=== PATIENT | female | born 1950 | race Two or more races ===

== ENCOUNTER 2018-09-26 23:51 | Inpatient (IN) | payer MEDICARE, BC ==
[~2018-09-26] VITALS: Ht 177.8 cm; Wt 126.6 kg
[2018-09-27] VITALS (8 sets, daily range): BP systolic 128–164; BP diastolic 60–92
[2018-09-27 01:20] LABS: BASOPHILS % (AUTO) 0.9 % (0.0-2.0); EOSINOPHILS % (AUTO) 1.4 % (0.0-3.0); HEMATOCRIT 30.3 % (37.0-47.0); HEMOGLOBIN 9.4 G/DL (12.0-16.0); LYMPHOCYTES % (AUTO) 11.7 % (20.0-45.0); MEAN CORPUSCULAR VOLUME 80 FL (80-99); NEUTROPHILS % (AUTO) 80.1 % (45.0-75.0); PLATELET COUNT 323 K/UL (150-450); RED BLOOD COUNT 3.79 M/UL (4.20-5.40); RED CELL DISTRIBUTION WIDTH 17.9 % (11.6-14.8); WHITE BLOOD COUNT 11.7 K/UL (4.8-10.8)
[2018-09-27 01:32] LABS: ANION GAP 10 mmol/L (5-15); BLOOD UREA NITROGEN 6 mg/dL (7-18); CALCIUM 8.4 MG/DL (8.5-10.1); CARBON DIOXIDE 26 MMOL/L (21-32); CHLORIDE 109 MMOL/L (98-107); CREATININE 1.1 MG/DL (0.55-1.30); POTASSIUM 3.7 MMOL/L (3.5-5.1); SODIUM 145 MMOL/L (136-145)
[2018-09-27 01:37] LABS: ALANINE AMINOTRANSFERASE 22 U/L (12-78); ALBUMIN/GLOBULIN RATIO 0.8 (1.0-2.7); ALKALINE PHOSPHATASE < 10 U/L (46-116); ASPARTATE AMINO TRANSFERASE 15 U/L (15-37); BILIRUBIN,TOTAL 0.4 MG/DL (0.2-1.0)
[2018-09-27] MEDS ORDERED: Morphine Sulfate 4mg/ml Inj (IV/IM USE ONLY) IVP ONE ×2 (02:15)
[2018-09-27 02:20] LABS: APPEARANCE,URINE CLEAR; BILIRUBIN, URINE NEGATIVE (NEGATIVE); COLOR,URINE PALE YELLOW; GLUCOSE, URINE (UA) NEGATIVE (NEGATIVE); KETONES,URINE NEGATIVE (NEGATIVE); LEUKOCYTE ESTERASE ,URINE NEGATIVE (NEGATIVE); NITRITE,URINE NEGATIVE (NEGATIVE); PH,URINE 7 (4.5-8.0); PROTEIN,URINE NEGATIVE (NEGATIVE); UROBILINOGEN,URINE NORMAL MG/DL (0.0-1.0)
--- NOTE | 2018-09-27 03:21 | Emergency Room Report ---
History of Present Illness General Chief Complaint: Pain Source: Patient Present Illness HPI Patient fell and twisted her L leg. She has severe pain above the knee which radiates down below the knee. She has had knee replacement surgery in the past. EMS splinted the leg. No head or back trauma. No UE pain. She denies numbness, but states the MS causes variable sensation in LE. Patient with MS and leg weakness. She has had falls in the past. No fevers, chills, URI sy, cough, chest pain, dyspnea, rashes, headache, NVD, dysuria. Allergies: Coded Allergies: No Known Allergies (Unverified , 09/26/18) Patient History Past Medical History: see triage record Past Surgical History: other - knee replacements Social History: Denies: smoking Social History Narrative at home Last Menstrual Period: n/a Now: No Reviewed Nursing Documentation: PMH: Agreed; PSxH: Agreed Nursing Documentation-PMH Hx Cardiac Problems: Yes - PT has AFIB Hx Hypertension: Yes - PT stated she has high blood pressure Hx Pacemaker: No Hx Asthma: No Hx COPD: No Hx Diabetes: No Hx Cancer: No Hx Gastrointestinal Problems: No Hx Dialysis: No History Of Psychiatric Problem: No Hx Neurological Problems: Yes - PT stated she has Multiple Sclerosis Hx Cerebrovascular Accident: No Hx Seizures: No Review of Systems All Other Systems: negative except mentioned in HPI Physical Exam Vital Signs Date Time Temp Pulse Resp B/P (MAP) Pulse Ox O2 Delivery O2 Flow Rate FiO2 09/26/18 23:50 98.2 88 12 127/72 95 Room Air Sp02 EP Interpretation: reviewed, normal General Appearance: no apparent distress, GCS 15, Chronically Ill Head: normocephalic Eyes: bilateral eye normal inspection, bilateral eye PERRL ENT: moist mucus membranes Neck: supple Respiratory: lungs clear, normal breath sounds Cardiovascular #1: regular rate, rhythm Cardiovascular #2: 2+ radial (R) Gastrointestinal: normal inspection, normal bowel sounds, non tender, no mass, non-distended, overweight Genitourinary: no CVA tenderness Musculoskeletal: back normal, no calf tenderness, other - tenderness L knee area, no deformity Neurologic: alert, oriented x3, sensory intact, motor weakness - LE Psychiatric: mood/affect normal Skin: normal inspection, warm/dry Medical Decision Making Diagnostic Impression: Primary Impression: Fracture, femur, distal Qualified Codes: S72.402A - Unspecified fracture of lower end of left femur, initial encounter for closed fracture Additional Impression: Multiple sclerosis ER Course Patient with knee pain post fall. DDX: fx, contusion, strain, sprain. Based on pain and exam, fracture highly suspected. Xrays, labs indicted. Analgesia ordered. EKG with a fib. L femur with fracture. L tib fib no fx. Labs with slight leukocytosis. Repeat analgesia. Splint applied by techs. Position good and neurovasc checked by me and "normal " (weakness as before). Patient admitted Dr. Parry. Dr. Rivera contacted and will consult. Improved pain control. Laboratory Tests Test 09/27/18 01:03 09/27/18 01:54 White Blood Count 11.7 K/UL (4.8-10.8) H Red Blood Count 3.79 M/UL (4.20-5.40) L Hemoglobin 9.4 G/DL (12.0-16.0) L Hematocrit 30.3 % (37.0-47.0) L Mean Corpuscular Volume 80 FL (80-99) Mean Corpuscular Hemoglobin 24.9 PG (27.0-31.0) L Mean Corpuscular Hemoglobin Concent 31.1 G/DL (32.0-36.0) L Red Cell Distribution Width 17.9 % (11.6-14.8) H Platelet Count 323 K/UL (150-450) Mean Platelet Volume 7.9 FL (6.5-10.1) Neutrophils (%) (Auto) 80.1 % (45.0-75.0) H Lymphocytes (%) (Auto) 11.7 % (20.0-45.0) L Monocytes (%) (Auto) 6.0 % (1.0-10.0) Eosinophils (%) (Auto) 1.4 % (0.0-3.0) Basophils (%) (Auto) 0.9 % (0.0-2.0) Prothrombin Time 10.9 SEC (9.30-11.50) Prothrombin Time INR 1.0 (0.9-1.1) PTT 29 SEC (23-33) Sodium Level 145 MMOL/L (136-145) Potassium Level 3.7 MMOL/L (3.5-5.1) Chloride Level 109 MMOL/L (98-107) H Carbon Dioxide Level 26 MMOL/L (21-32) Anion Gap 10 mmol/L (5-15) Blood Urea Nitrogen 6 mg/dL (7-18) L Creatinine 1.1 MG/DL (0.55-1.30) Estimate Glomerular Filtration Rate 49.9 mL/min (>60) Glucose Level 95 MG/DL (74-106) Calcium Level 8.4 MG/DL (8.5-10.1) L Total Bilirubin 0.4 MG/DL (0.2-1.0) Aspartate Amino Transferase (AST) 15 U/L (15-37) Alanine Aminotransferase (ALT) 22 U/L (12-78) Alkaline Phosphatase < 10 U/L (46-116) L Total Protein 6.6 G/DL (6.4-8.2) Albumin 3.0 G/DL (3.4-5.0) L Globulin 3.6 g/dL Albumin/Globulin Ratio 0.8 (1.0-2.7) L Urine Color Pale yellow Urine Appearance Clear Urine pH 7 (4.5-8.0) Urine Specific [place] 1.005 (1.005-1.035) Urine Protein Negative (NEGATIVE) Urine Glucose (UA) Negative (NEGATIVE) Urine Ketones Negative (NEGATIVE) Urine Blood Negative (NEGATIVE) Urine Nitrite Negative (NEGATIVE) Urine Bilirubin Negative (NEGATIVE) Urine Urobilinogen Normal MG/DL (0.0-1.0) Urine Leukocyte Esterase Negative (NEGATIVE) Urine RBC 0-2 /HPF (0 - 2) Urine WBC 0-2 /HPF (0 - 2) Urine Squamous Epithelial Cells Occasional /LPF Urine Bacteria Occasional /HPF (NONE) EKG Diagnostic Results Rhythm: other - a fib ST Segments: no acute changes Rhythm Strip Diag. Results EP Interpretation: yes Rhythm: no PVC's, no ectopy, other - a fib Other X-Ray Diagnostic Results Other X-Ray Diagnostic Results #1: X-Ray ordered: femur # of Views/Limited Vs Complete: 4 View Indication: Pain Interpretation: no dislocation, no soft tissue swelling, other - fx Impression: Other Electronically Signed by: Electronically signed by Sung Barnes MD Other X-Ray Diagnostic Results #2: X-Ray ordered: tib fib # of Views/Limited Vs Complete: 4 View Indication: Pain Interpretation: no dislocation, no soft tissue swelling, no fractures, other - knee replacement Impression: Other Electronically Signed by: Electronically signed by Sung Barnes MD Last Vital Signs Date Time Temp Pulse Resp B/P (MAP) Pulse Ox O2 Delivery O2 Flow Rate FiO2 09/27/18 04:39 98.0 09/27/18 03:56 Room Air 09/27/18 03:30 104 18 141/86 (104) 94 Status: improved Disposition: ADMITTED INPATIENT Condition: Serious Referrals: NOT CHOSEN IPA/,REFERRING (PCP) Sung Barnes MD Sep 27, 2018 03:20
[2018-09-27] MEDS: Sodium Chloride 500ML 550 ML IV SCH ×2 (03:40)
--- NOTE | 2018-09-27 03:47 | Diagnostic Imaging Report ---
EXAM: XR Left Femur, 2 Views CLINICAL HISTORY: TRAUMA TECHNIQUE: Frontal and lateral views of the left femur. COMPARISON: No relevant prior studies available. FINDINGS: Bones/joints: Transverse distal femoral diaphysis fracture with 4 cm of overlap displacement. Partially seen left total knee arthroplasty which is distal to the fracture site and appears uninvolved. Additional dedicated knee and leg radiograph studies have also been obtained. Mild left hip degenerative findings. No dislocation. Soft tissues: Soft tissue increased opacity in the mid femoral diaphysis may represent intramuscular and soft tissue hematoma. IMPRESSION: 1. Transverse distal femoral diaphysis fracture with 4 cm of overlap displacement. 2. Soft tissue increased opacity in the mid femoral diaphysis may represent intramuscular and soft tissue hematoma. 3. Partially seen left total knee arthroplasty which is distal to the fracture site and appears uninvolved. 4. Additional dedicated knee and leg radiograph studies have also been obtained.
--- NOTE | 2018-09-27 03:48 | Diagnostic Imaging Report ---
EXAM: XR Left Tibia and Fibula, 2 Views CLINICAL HISTORY: TRAUMA TECHNIQUE: Frontal and lateral views of the left tibia and fibula. COMPARISON: No relevant prior studies available. FINDINGS: Bones/joints: Partially seen total knee arthroplasty without visualized complication. No acute osseous abnormality. Achilles calcaneal enthesophyte. Mild degenerative hindfoot findings. No dislocation. Soft tissues: Unremarkable soft tissues. No radiopaque foreign body. IMPRESSION: 1. Partially seen total knee arthroplasty without visualized complication. 2. No acute osseous abnormality.
--- NOTE | 2018-09-27 03:51 | Diagnostic Imaging Report ---
EXAM: XR Left Knee, 3 views CLINICAL HISTORY: TRAUMA TECHNIQUE: Three views of the left knee. COMPARISON: No relevant prior studies available. FINDINGS: Bones/joints: Transverse distal femoral diaphysis fracture with 4 cm displaced overlap present, distal fracture fragment lies posterior to proximal fracture fragment. Thin linear vertically oriented fracture line without displacement extends distally and may involve some component of the left total knee arthroplasty which is otherwise not displaced and otherwise demonstrates no complication. No dislocation. Soft tissues: Stranding soft tissue swelling. IMPRESSION: 1. Transverse distal femoral diaphysis fracture with 4 cm displaced overlap present, distal fracture fragment lies posterior to proximal fracture fragment. 2. Thin linear vertically oriented fracture line without displacement extends distally and may involve some component of the left total knee arthroplasty which is otherwise not displaced and otherwise demonstrates no complication. 3. Stranding soft tissue swelling.
[2018-09-27] MEDS: Morphine Sulfate 2mg/ml Inj IVP PRN ×3 (04:09→21:30)
[2018-09-27] MEDS ORDERED: UNOBMED (07:25)
[2018-09-27] MEDS ORDERED: Morphine Sulfate 2mg/ml Inj IVP SCH ×2 (08:15→15:55)
[2018-09-27] MEDS: Docusate 100mg cap ORAL SCH ×3 (08:40→18:12)
[2018-09-27] MEDS: Carvedilol 25mg Tab ORAL SCH ×2 (08:40→21:26)
[2018-09-27] MEDS: Liothyronine 5mcg tab ORAL SCH (08:42)
[2018-09-27] MEDS: Enoxaparin 40mg Inj SUBQ SCH (08:46)
--- NOTE | 2018-09-27 13:30 | History and Physical Report ---
DATE OF ADMISSION: 09/27/2018 REASON FOR ADMISSION: Left leg pain. HISTORY OF PRESENT ILLNESS: The patient is a 67-year-old female with known multiple sclerosis and multiple falls and as such, the patient had only been on aspirin for her atrial fibrillation when she presented with left lower extremity pain. X-rays were conducted and showed a transverse distal femoral diaphysis fracture with a 4 cm of overlap displacement. As such, the patient was admitted for further evaluation and management per Orthopedics. PAST MEDICAL HISTORY: 1. Multiple sclerosis. 2. Hypertension. 3. Atrial fibrillation. FAMILY HISTORY: Positive for hypertension. PAST SURGICAL HISTORY: Noncontributory. LABORATORY DATA: Laboratories dated September 27, 2018, sodium 145, potassium 3.7, creatinine 1.1. White cell count 11.7, hemoglobin 9.4, and platelet count 323. PHYSICAL EXAMINATION: VITAL SIGNS: Blood pressure 141/86, respiratory rate 18, pulse 104, temperature 97.9, and 94% oxygen saturation on room air. GENERAL: The patient awake, alert, not otherwise in distress. HEENT: Extraocular muscles intact. No lymphadenopathy noted. CARDIOVASCULAR: S1, S2. Irregularly irregular. PULMONARY: Clear to auscultation bilaterally. No rales, rhonchi or wheezes. ABDOMEN: Nondistended and nontender. EXTREMITIES: No edema noted. ASSESSMENT AND PLAN: 1. Left leg pain secondary to transverse distal femoral diaphysis fracture with 4 cm displaced overlap. As such, Orthopedics Dr. Rivera has been consulted. We will defer management. 2. DVT prophylaxis with Lovenox. 3. Atrial fibrillation, chronic. The patient will be on aspirin due to recurrent multiple falls. 4. Multiple sclerosis. At this time, we are trying to ascertain her appropriate medicine reconciliation list. 5. Hypertension. We will adjust medications as deemed appropriate. 6. At this time, we are trying to ascertain her medications and we will continue appropriate medications as deemed necessary. Patel Gray MD DR: BARRINGTON/MARY JOB#: [id number] CC:
--- NOTE | 2018-09-27 14:57 | Cardiology Report ---
APPROVED REPORT EKG Measurement Heart [id number] Atrial fibrillation Septal infarct, age undetermined Abnormal ECG
[2018-09-28] VITALS: BP 115/61
[2018-09-28] MEDS: Morphine Sulfate 2mg/ml Inj IVP PRN ×5 (03:16→22:17)
[2018-09-28 04:00] VITALS: BP 147/77
[2018-09-28] MEDS ORDERED: Morphine Sulfate 2mg/ml Inj IVP ONE (06:00)
[2018-09-28 08:00] VITALS: BP 147/94
[2018-09-28 08:16] LABS: BASOPHILS % (AUTO) 0.6 % (0.0-2.0); EOSINOPHILS % (AUTO) 1.9 % (0.0-3.0); LYMPHOCYTES % (AUTO) 12.5 % (20.0-45.0); MEAN CORPUSCULAR VOLUME 81 FL (80-99); MONOCYTES % (AUTO) 12.9 % (1.0-10.0); NEUTROPHILS % (AUTO) 72.1 % (45.0-75.0); PLATELET COUNT 234 K/UL (150-450); RED BLOOD COUNT 3.21 M/UL (4.20-5.40); RED CELL DISTRIBUTION WIDTH 18.1 % (11.6-14.8); WHITE BLOOD COUNT 11.7 K/UL (4.8-10.8)
[2018-09-28 08:43] LABS: ANION GAP 7 mmol/L (5-15); BLOOD UREA NITROGEN 12 mg/dL (7-18); CALCIUM 8.3 MG/DL (8.5-10.1); CARBON DIOXIDE 25 MMOL/L (21-32); CHLORIDE 106 MMOL/L (98-107); CREATININE 1.1 MG/DL (0.55-1.30); POTASSIUM 3.9 MMOL/L (3.5-5.1); SODIUM 138 MMOL/L (136-145)
--- NOTE | 2018-09-28 08:51 | Nephrology Progress Note ---
Assessment/Plan Assessment/Plan A/P 1) transverse distal femoral diaphysis fracture with 4 cm displaced overlap - Surgery planned for today - adjust pain medications 2) HTN- stable 3) Hypothyroid- cytomel 4) DVT prophylaxsis with lovenox Subjective Date patient seen: Sep 28, 2018 Time patient seen: 08:45 ROS Limited/Unobtainable: No Allergies: Coded Allergies: No Known Allergies (Unverified , 09/26/18) All Systems: reviewed and negative except above Subjective Patient still with left leg pain Objective Last 24 Hour Vital Signs Date Time Temp Pulse Resp B/P (MAP) Pulse Ox O2 Delivery O2 Flow Rate FiO2 09/28/18 06:44 99.8 09/28/18 06:11 99.8 09/28/18 04:00 100.0 82 18 147/77 (100) 82 09/28/18 00:00 100.0 19 115/61 (79) 88 09/27/18 21:26 92 150/91 09/27/18 21:00 Room Air 09/27/18 20:00 99.8 105 20 164/86 (112) 94 09/27/18 19:00 100.3 09/27/18 16:00 99.9 88 20 164/89 (114) 100 09/27/18 12:00 99.1 91 18 141/66 (91) 98 09/27/18 09:00 Room Air Intake and Output 09/27/18 09/28/18 18:59 06:59 Intake Total 1260 ml Output Total 650 ml 450 ml Balance -650 ml 810 ml Intake Oral 360 ml IV Total 900 ml Output Urine Total 650 ml 450 ml Laboratory Tests 09/28/18 06:32: White Blood Count 11.7H, Red Blood Count 3.21L, Hemoglobin 8.0L, Hematocrit 26.0L, Mean Corpuscular Volume 81, Mean Corpuscular Hemoglobin 25.0L, Mean Corpuscular Hemoglobin Concent 30.9L, Red Cell Distribution Width 18.1H, Platelet Count 234, Mean Platelet Volume 8.4, Neutrophils (%) (Auto) 72.1, Lymphocytes (%) (Auto) 12.5L, Monocytes (%) (Auto) 12.9H, Eosinophils (%) (Auto ) 1.9, Basophils (%) (Auto) 0.6 09/28/18 07:55: Sodium Level [Pending], Potassium Level [Pending], Chloride Level [Pending], Carbon Dioxide Level [Pending], Blood Urea Nitrogen [Pending], Creatinine [ Pending], Estimat Glomerular Filtration Rate [Pending], Glucose Level [Pending] , Calcium Level [Pending] Height (Feet): 5 Height (Inches): 10.00 Weight (Pounds): 266 General Appearance: no apparent distress, alert EENT: PERRL/EOMI, normal ENT inspection Neck: normal alignment, supple Cardiovascular: normal rate, regular rhythm Respiratory/Chest: lungs clear, normal breath sounds Abdomen: non tender, soft Edema: no edema noted Arm (L), no edema noted Arm (R), no edema noted Leg (L), no edema noted Leg (R), no edema noted Pedal (L), no edema noted Pedal (R), no edema noted Generalized Patel Gray MD Sep 28, 2018 08:51
[2018-09-28] MEDS: Carvedilol 25mg Tab ORAL SCH ×2 (09:28→20:38)
[2018-09-28] MEDS: Docusate 100mg cap ORAL SCH ×2 (09:29→17:25)
[2018-09-28] MEDS: Liothyronine 5mcg tab ORAL SCH (09:30)
[2018-09-28] MEDS: Enoxaparin 40mg Inj SUBQ SCH (09:37)
--- NOTE | 2018-09-28 09:39 | Consultation ---
Consult Note Consult Note [id number] Job ID Robbi Wilcox MD Sep 28, 2018 09:39
[2018-09-28 09:53] LABS: FERRITIN 51 NG/ML (8-388); LACTATE DEHYDROGENASE 225 U/L (81-234)
[2018-09-28 11:07] LABS: INR 1.2 (0.9-1.1)
[2018-09-28 11:12] LABS: % IRON SATURATION 4 % (15-50); IRON 10 ug/dL (50-175); TOTAL IRON BINDING CAPACITY 257 ug/dL (250-450)
[2018-09-28] MEDS ORDERED: NORCO 10-325 T1 EACH ORAL (11:25)
[2018-09-28] MEDS ORDERED: FERROUS SULFAT325 M2 ORAL (11:25)
[2018-09-28] MEDS ORDERED: VITAMIN C500 M1 ORAL (11:25)
[2018-09-28] MEDS ORDERED: MULTIVITAMINS1 EAC2 ORAL (11:25)
[2018-09-28] MEDS ORDERED: ASPIRIN EC325 MG ORAL (11:25)
[2018-09-28] MEDS ORDERED: NORVASC2.5 MG ORAL (11:25)
[2018-09-28] MEDS ORDERED: COREG25 MG ORAL (11:25)
[2018-09-28] MEDS ORDERED: LIOTHYRONINE S25 MCG PO (11:25)
[2018-09-28] MEDS ORDERED: PANTOPRAZOLE SO20 MG ORAL (11:25)
[2018-09-28] MEDS ORDERED: DOCUSATE SODIU100 M2 ORAL (11:25)
[2018-09-28] MEDS ORDERED: NEURONTIN300 MG ORAL (11:25)
[2018-09-28 12:00] VITALS: BP 144/86
[2018-09-28] MEDS ORDERED: Epogen (for non ESRD use) SUBQ ONE (12:00)
[2018-09-28 16:00] VITALS: BP 144/76
[2018-09-28] MEDS: DiphenhydrAMINE 50mg/ml Inj IVP PRN (17:25)
[2018-09-28 20:00] VITALS: BP 148/84
[2018-09-28] MEDS: Iron Sucrose 100 MG in NS 55 ML IV SCH (20:38)
[2018-09-28] MEDS ORDERED: Lactulose 20gm/30ml UDC ORAL PRN (22:00)
[2018-09-29] VITALS: BP 121/67
[2018-09-29] MEDS ORDERED: Lactulose 20gm/30ml UDC ORAL SCH (02:00)
--- NOTE | 2018-09-29 03:45 | Consultation ---
DATE OF CONSULTATION: 09/28/2018 HEMATOLOGY/ONCOLOGY CONSULTATION CONSULTING PHYSICIAN: Robbi Wilcox M.D. REQUESTING PHYSICIAN: Patel Gray M.D. REASON FOR CONSULTATION: Evaluation of preoperative anemia. ID: Dear Dr. Gray: The patient is a pleasant 67-year-old female with past medical history significant for MS, hypertension, and atrial fibrillation, history of MS again that has been relatively becoming controlled. She has only been on aspirin. She suffered left lower extremity pain on Saturday and noted to have a transverse distal femoral diaphysis fracture 4 cm of overlap displacement. Hematology service was consulted for further evaluation and underlying treatment of her disorder. Noted to have hemoglobin of 8, an INR of 1, BUN of 12, creatinine of 1.1, and calcium of 8.3. Hematology was again consulted. PAST MEDICAL HISTORY: MS, hypertension, and atrial fibrillation. PAST FAMILY HISTORY: Hypertension. PAST SURGICAL HISTORY: Noncontributory. REVIEW OF SYSTEMS: CONSTITUTIONAL: No fever, chills, or night sweats. SKIN: No rashes, bumps, or itching. HEENT: No headache, hearing or visual changes. BREASTS: No lumps, pain, or discharge. PULMONARY: No cough, sputum, or shortness of breath. GASTROINTESTINAL: No nausea, vomiting, or diarrhea. GENITOURINARY: No dysuria, frequency, or urgency. MUSCULOSKELETAL: No joint swelling, muscle pain, or trauma. PHYSICAL EXAMINATION: VITAL SIGNS: Reviewed. GENERAL: No acute distress. LUNGS: Decreased breath sounds. CARDIOVASCULAR: Regular rate. No S3 or S4. ABDOMEN: Soft, nontender, and nondistended. EXTREMITIES: Left lower extremity with transverse distal femoral diaphysis fracture, is in an Ck band wrapping, being taken care of by the nurse . ASSESSMENT AND RECOMMENDATIONS: 1. Anemia of iron deficiency. Reviewed the patient's prior laboratories from [facility]. The patient does have iron deficiency. We will administer one dose of IV iron. The patient is status post colonoscopy, EGD, and capsule endoscopy in the past. She had been seen by GI Service and seen by Dr. Hernandez. She was also seen by . The patient requires IV iron as well as one dose of Procrit as well as 1 unit of blood prior to surgery. Maintain hemoglobin above 8. Preoperative clearance. 2. Anemia, rule out GI bleed. She has had colonoscopy, capsule endoscopy. 3. Leukocytosis, likely secondary to reactive process from anemia. 4. Transverse left leg metatarsal fracture, to undergo surgery on Saturday. I appreciate the consultation. Robbi Wilcox M.D. DR: SAYDA JOB#: [id number] CC:
[2018-09-29] MEDS: Morphine Sulfate 2mg/ml Inj IVP PRN ×4 (03:56→20:06)
[2018-09-29 04:44] VITALS: BP 139/66
[2018-09-29] MEDS ORDERED: Lactulose 20gm/30ml UDC ORAL PRN (07:00)
[2018-09-29 07:37] LABS: BASOPHILS % (AUTO) 0.4 % (0.0-2.0); EOSINOPHILS % (AUTO) 2.3 % (0.0-3.0); HEMATOCRIT 25.1 % (37.0-47.0); LYMPHOCYTES % (AUTO) 10.2 % (20.0-45.0); MEAN CORPUSCULAR VOLUME 82 FL (80-99); MONOCYTES % (AUTO) 10.2 % (1.0-10.0); NEUTROPHILS % (AUTO) 76.9 % (45.0-75.0); PLATELET COUNT 198 K/UL (150-450); RED BLOOD COUNT 3.07 M/UL (4.20-5.40); RED CELL DISTRIBUTION WIDTH 17.5 % (11.6-14.8); WHITE BLOOD COUNT 10.9 K/UL (4.8-10.8)
[2018-09-29 07:55] LABS: ANION GAP 5 mmol/L (5-15); BLOOD UREA NITROGEN 10 mg/dL (7-18); CARBON DIOXIDE 26 MMOL/L (21-32); CHLORIDE 109 MMOL/L (98-107); POTASSIUM 3.9 MMOL/L (3.5-5.1); SODIUM 139 MMOL/L (136-145)
[2018-09-29 08:00] VITALS: BP 128/81
[2018-09-29] MEDS: Liothyronine 5mcg tab ORAL SCH (08:30)
[2018-09-29] MEDS: Carvedilol 25mg Tab ORAL SCH ×2 (08:30→20:05)
[2018-09-29] MEDS: Docusate 100mg cap ORAL SCH ×2 (09:00→17:54)
[2018-09-29] MEDS: Enoxaparin 40mg Inj SUBQ SCH (09:00)
--- NOTE | 2018-09-29 09:15 | Nephrology Progress Note ---
Assessment/Plan Assessment/Plan A/P 1) transverse distal femoral diaphysis fracture with 4 cm displaced overlap - Surgery planned for today at 730 pm - DC once cleared by Ortho 2) HTN- stable 3) Hypothyroid- cytomel 4) DVT prophylaxsis with lovenox 5) Anemia- Hgb stable at 8. Heme evaluation and management Subjective Date patient seen: Sep 29, 2018 Time patient seen: 09:13 ROS Limited/Unobtainable: No Allergies: Coded Allergies: No Known Allergies (Unverified , 09/26/18) Subjective Patient still with left leg pain. Surgery planned for later today Objective Last 24 Hour Vital Signs Date Time Temp Pulse Resp B/P (MAP) Pulse Ox O2 Delivery O2 Flow Rate FiO2 09/29/18 08:30 81 128/81 09/29/18 08:30 81 128/81 09/29/18 08:00 98.1 81 21 128/81 (97) 97 09/29/18 05:30 98.4 09/29/18 04:44 86 20 139/66 (90) 98 09/29/18 04:28 98.4 09/29/18 04:26 98.4 09/29/18 04:00 100.7 09/29/18 00:00 101.0 86 18 121/67 (85) 97 09/28/18 21:00 Room Air 09/28/18 20:38 90 148/84 09/28/18 20:00 99.8 90 20 148/84 (105) 97 09/28/18 16:00 99.8 73 18 144/76 (98) 95 09/28/18 12:00 99.0 72 19 144/86 (105) 98 09/28/18 09:29 102 147/94 09/28/18 09:28 102 147/94 Intake and Output 09/28/18 09/29/18 19:00 07:00 Intake Total 620 ml 360 ml Output Total 1500 ml 600 ml Balance -880 ml -240 ml Intake Oral 620 ml 300 ml IV Total 60 ml Output Urine Total 1500 ml 600 ml # Voids 1 # Bowel Movements 2 Laboratory Tests 09/28/18 10:05: Prothrombin Time 12.4H, Prothromb Time International Ratio 1.2H, Fibrinogen 424H 09/29/18 03:40: Stool Occult Blood [Pending] 09/29/18 06:48: White Blood Count 10.9H, Red Blood Count 3.07L, Hemoglobin 8.0L, Hematocrit 25.1L, Mean Corpuscular Volume 82, Mean Corpuscular Hemoglobin 26.2L, Mean Corpuscular Hemoglobin Concent 32.0, Red Cell Distribution Width 17.5H, Platelet Count 198, Mean Platelet Volume 8.5, Neutrophils (%) (Auto) 76.9H, Lymphocytes (%) (Auto) 10.2L, Monocytes (%) (Auto) 10.2H, Eosinophils (%) (Auto ) 2.3, Basophils (%) (Auto) 0.4, Sodium Level 139, Potassium Level 3.9, Chloride Level 109H, Carbon Dioxide Level 26, Anion Gap 5, Blood Urea Nitrogen 10, Creatinine 1.0, Estimat Glomerular Filtration Rate 55.7, Glucose Level 112H , Calcium Level 8.0L Height (Feet): 5 Height (Inches): 10.00 Weight (Pounds): 266 General Appearance: no apparent distress, alert EENT: normal ENT inspection Neck: normal alignment, supple Cardiovascular: normal rate, regular rhythm Respiratory/Chest: lungs clear, normal breath sounds Abdomen: non tender, soft Edema: no edema noted Arm (L), no edema noted Arm (R), no edema noted Leg (L), no edema noted Leg (R), no edema noted Pedal (L), no edema noted Pedal (R), no edema noted Generalized Patel Gray MD Sep 29, 2018 09:15
--- NOTE | 2018-09-29 11:16 | General Progress Note ---
Assessment/Plan Assessment/Plan # Anemia of iron deficiency. Reviewed the patient's prior laboratories from [facility]. The patient does have iron deficiency. --> Administer one dose of IV iron. Give for total 3 doses ==> The patient is status post colonoscopy eGD, and capsule endoscopy in the past. She had been seen by GI Service and seen by Dr. Hernandez at [facility] --> Has been given one dose of Procrit --> given prbc prn, Maintain hemoglobin above 8. --> Preoperative clearance as per pcp # Anemia, rule out GI bleed. She has had colonoscopy, capsule endoscopy in the past no evidence of bleed --> anemia panel has been reviewed as well --> gi occult was ++ # Leukocytosis, likely secondary to reactive process from anemia. --> smear reviewed # Transverse left leg metatarsal fracture, to undergo surgery on Saturday. --> surgery 09/29 730 Appreciate consultation greatly! Subjective Constitutional: Denies: no symptoms, chills, diaphoresis, fever, malaise, weakness, other HEENT: Denies: no symptoms, eye pain, blurred vision, tearing, double vision, ear pain, ear discharge, nose pain, nose congestion, throat pain, throat swelling, mouth pain, mouth swelling, other Cardiovascular: Denies: no symptoms, chest pain, edema, irregular heart rate, lightheadedness, palpitations, syncope, other Respiratory: Denies: no symptoms, cough, orthopnea, shortness of breath, SOB with excertion, SOB at rest, sputum, stridor, wheezing, other Gastrointestinal/Abdominal: Denies: no symptoms, abdomen distended, abdominal pain, black stools, tarry stools, blood in stool, constipated, diarrhea, difficulty swallowing, nausea, poor appetite, poor fluid intake, rectal bleeding , vomiting, other Genitourinary: Denies: no symptoms, burning, discharge, frequency, flank pain, hematuria, incontinence, pain, urgency, other Neurologic/Psychiatric: Denies: no symptoms, anxiety, depressed, emotional problems, headache, numbness, paresthesia, pre-existing deficit, seizure, tingling, tremors, weakness, other Endocrine: Denies: no symptoms, excessive sweating, flushing, intolerance to cold, intolerance to heat, increased hunger, increased thirst, increased urine, unexplained weight gain, unexplained weight loss, other Allergies: Coded Allergies: No Known Allergies (Unverified , 09/26/18) Subjective left knee pain noted, on pain meds Objective Last 24 Hour Vital Signs Date Time Temp Pulse Resp B/P (MAP) Pulse Ox O2 Delivery O2 Flow Rate FiO2 09/29/18 09:01 98.1 09/29/18 08:30 81 128/81 09/29/18 08:30 81 128/81 09/29/18 08:00 98.1 81 21 128/81 (97) 97 09/29/18 05:30 98.4 09/29/18 04:44 86 20 139/66 (90) 98 09/29/18 04:28 98.4 09/29/18 04:00 100.7 09/29/18 00:00 101.0 86 18 121/67 (85) 97 09/28/18 21:00 Room Air 09/28/18 20:38 90 148/84 09/28/18 20:00 99.8 90 20 148/84 (105) 97 09/28/18 16:00 99.8 73 18 144/76 (98) 95 09/28/18 12:00 99.0 72 19 144/86 (105) 98 Intake and Output 09/28/18 09/29/18 18:59 06:59 Intake Total 620 ml 360 ml Output Total 1500 ml 600 ml Balance -880 ml -240 ml Intake Oral 620 ml 300 ml IV Total 60 ml Output Urine Total 1500 ml 600 ml # Voids 1 # Bowel Movements 2 Laboratory Tests 09/29/18 03:40: Stool Occult Blood [Pending] 09/29/18 06:48: White Blood Count 10.9H, Red Blood Count 3.07L, Hemoglobin 8.0L, Hematocrit 25.1L, Mean Corpuscular Volume 82, Mean Corpuscular Hemoglobin 26.2L, Mean Corpuscular Hemoglobin Concent 32.0, Red Cell Distribution Width 17.5H, Platelet Count 198, Mean Platelet Volume 8.5, Neutrophils (%) (Auto) 76.9H, Lymphocytes (%) (Auto) 10.2L, Monocytes (%) (Auto) 10.2H, Eosinophils (%) (Auto ) 2.3, Basophils (%) (Auto) 0.4, Sodium Level 139, Potassium Level 3.9, Chloride Level 109H, Carbon Dioxide Level 26, Anion Gap 5, Blood Urea Nitrogen 10, Creatinine 1.0, Estimat Glomerular Filtration Rate 55.7, Glucose Level 112H , Calcium Level 8.0L Height (Feet): 5 Height (Inches): 10.00 Weight (Pounds): 266 Objective Gen: Nad Pulm: CTAB, no cwr CV: Rrr, no mgr Abd: soft, nd Ext: no cce Robbi Wilcox MD Sep 29, 2018 11:16
[2018-09-29] MEDS ORDERED: LR 1000ml 1,000 ML IVLG SCH (11:38)
[2018-09-29] MEDS ORDERED: DiphenhydrAMINE 50mg/ml Inj IVP PRN (11:45)
[2018-09-29] MEDS ORDERED: HYDROmorphone 1mg/ml Carpuject IVP PRN (11:45)
[2018-09-29] MEDS ORDERED: LORazepam Inj 2mg/ml 1ml IV PRN (11:45)
[2018-09-29 11:48] LABS: INR 1.1 (0.9-1.1)
[2018-09-29 12:00] VITALS: BP 127/81
--- NOTE | 2018-09-29 12:04 | Anethesia Preoperative Eval ---
Anesthesia Pre-op PMH/ROS General Date of Evaluation: Sep 29, 2018 Time of Evaluation: 10:15 Anesthesiologist: Yony ASA Score: ASA 3 Mallampati Score Class I : Soft palate, uvula, fauces, pillars visible Class II: Soft palate, uvula, fauces visible Class III: Soft palate, base of uvula visible Class IV: Only hard plate visible Mallampati Classification: Class III Surgeon: Miguel Diagnosis: Distal left femur fracture Surgical Procedure: ORIF femur fracture Family History: no anesthesia problems Allergies: Coded Allergies: No Known Allergies (Unverified , 09/26/18) Medications: see eMAR Patient NPO?: Yes NPO Date: Sep 29, 2018 NPO Time: 07:30 Past Medical History Cardiovascular: Reports: HTN, CAD - Septal wall [place] via EKG, arrhythmia - Afib Pulmonary: Denies: asthma, COPD, JOCE, other Gastrointestinal/Genitourinary: Denies: GERD, CRI, ESRD, other Neurologic/Psychiatric: Denies: dementia, CVA, depression/anxiety, TIA, other Endocrine: Denies: DM, hypothyroidism, steroids, other HEENT: Denies: cataract (L), cataract (R), glaucoma, [place] (L), [place] (R), other Hematology/Immune: Reports: anemia; Denies: DVT, bleeding disorder, other Musculoskeletal/Integumentary: Reports: other - Multiple Sclerosis; Denies: OA, RA, DJD, DDD, edema Other: obesity PMH Narrative: HTN, Afib, MS, obesity, anemia PSxH Narrative: Bilateral TKR, T&A Anesthesia Pre-op Phys. Exam Physician Exam Last Vital Signs Date Time Temp Pulse Resp B/P (MAP) Pulse Ox O2 Delivery O2 Flow Rate FiO2 09/29/18 09:01 98.1 09/29/18 08:30 81 128/81 09/29/18 08:00 21 97 09/28/18 21:00 Room Air Constitutional: NAD Neurologic: CN 2-12 intact Cardiovascular: RRR, no M/R/G Respiratory: CTA Gastrointestinal: S/NT/ND Airway Exam Mallampati Score: Class II MO: full ROM: full Teeth: loose - Lower front Anesthesia Pre-op A/P Labs Hematology Test 09/29/18 06:48 White Blood Count 10.9 K/UL (4.8-10.8) H Red Blood Count 3.07 M/UL (4.20-5.40) L Hemoglobin 8.0 G/DL (12.0-16.0) L Hematocrit 25.1 % (37.0-47.0) L Mean Corpuscular Volume 82 FL (80-99) Mean Corpuscular Hemoglobin 26.2 PG (27.0-31.0) L Mean Corpuscular Hemoglobin Concent 32.0 G/DL (32.0-36.0) Red Cell Distribution Width 17.5 % (11.6-14.8) H Platelet Count 198 K/UL (150-450) Mean Platelet Volume 8.5 FL (6.5-10.1) Neutrophils (%) (Auto) 76.9 % (45.0-75.0) H Lymphocytes (%) (Auto) 10.2 % (20.0-45.0) L Monocytes (%) (Auto) 10.2 % (1.0-10.0) H Eosinophils (%) (Auto) 2.3 % (0.0-3.0) Basophils (%) (Auto) 0.4 % (0.0-2.0) Coagulation Test 09/29/18 11:10 Prothrombin Time Pending Prothromb Time International Ratio Pending Chemistry Test 09/29/18 06:48 Sodium Level 139 MMOL/L (136-145) Potassium Level 3.9 MMOL/L (3.5-5.1) Chloride Level 109 MMOL/L (98-107) H Carbon Dioxide Level 26 MMOL/L (21-32) Anion Gap 5 mmol/L (5-15) Blood Urea Nitrogen 10 mg/dL (7-18) Creatinine 1.0 MG/DL (0.55-1.30) Estimat Glomerular Filtration Rate 55.7 mL/min (>60) Glucose Level 112 MG/DL (74-106) H Calcium Level 8.0 MG/DL (8.5-10.1) L Studies Pre-op Studies: EKG - Afib, septal infarct, Risk Assessment & Plan Assessment: Class 3 patient with H/O HTN, MS, Afib, obesity, anemia now for ORIF left distal femur fracture Plan: GA, LMA (caution re: loose lower front teeth). PRBC for transfusion. Status Change Before Surgery: Yes - Case cancelled secondary to being febrile prior to coming to the OR. Pre-Antibiotics Given Within 1 Hr of Incision: Yes Wang Bhakta MD Sep 29, 2018 12:04
--- NOTE | 2018-09-29 12:05 | Immediate Post-Op Evaluation ---
Immediate Post-Op Evalulation Immediate Post-Op Evalulation Procedure: ORIF left distal femur fracture Date of Evaluation: Sep 29, 2018 Nausea: No Vomiting: No Complications Case cancelled secondary to febrile episode prior to coming to the OR. Hydration Status: adequate Wang Bhakta MD Sep 29, 2018 12:05
[2018-09-29] MEDS ORDERED: Morphine Sulfate 2mg/ml Inj IVP SCH (13:59)
[2018-09-29 16:00] VITALS: BP 134/66
[2018-09-29] MEDS ORDERED: NeoSporin Gu Irrig 1ml Amp IRRIG ONE (17:06)
[2018-09-29] MEDS ORDERED: Bacitracin 50000 Units Vial ONE (17:06)
[2018-09-29] MEDS ORDERED: Tubing IV Secondary IV ONE (18:14)
[2018-09-29] MEDS: Iron Sucrose 100 MG in NS 55 ML IV SCH (21:35)
[2018-09-29 23:55] VITALS: BP 107/61
[2018-09-30] VITALS (11 sets, daily range): BP systolic 110–136; BP diastolic 60–83
[2018-09-30] MEDS: Morphine Sulfate 2mg/ml Inj IVP PRN ×2 (05:42)
--- NOTE | 2018-09-30 06:00 | Progress Note ---
DATE: 09/29/2018 SUBJECTIVE: No issues overnight. The patient is resting comfortably on bed. OBJECTIVE: The patient is alert and oriented. Posterior splint was placed. The patient has tender toes. ASSESSMENT: Left periprosthetic femur fracture. DISCUSSION: At this point, I made contact with Dr. Pyle earlier today to initiate the transfer process. We want the patient transferred to [facility], which is reasonable. We will try to attempt to coordinate that. I discussed with her that if we cannot coordinate the transfer to [facility] expeditiously, then we will proceed with a formal fixation here. She will be made NPO after breakfast later on today. Addendum to the note: The patient was scheduled to have surgery later on this evening. Unfortunately, she has a low-grade fever and is slightly anemic. She was not cleared by the anesthesiologist. Therefore, we will try to optimize her underlying medical issues again in anticipation of surgery. In the meantime, we will follow up with Dr. Pyle as well regarding the transfer process to [facility]. Rogelio Rivera M.D. DR: FIONA JOB#: [id number] CC:
[2018-09-30] MEDS ORDERED: HYDROmorphone 1mg/ml Carpuject IVP SCH (07:45)
[2018-09-30 07:57] LABS: BASOPHILS % (AUTO) 0.6 % (0.0-2.0); EOSINOPHILS % (AUTO) 3.3 % (0.0-3.0); HEMATOCRIT 27.1 % (37.0-47.0); HEMOGLOBIN 8.3 G/DL (12.0-16.0); LYMPHOCYTES % (AUTO) 11.4 % (20.0-45.0); MEAN CORPUSCULAR VOLUME 82 FL (80-99); MONOCYTES % (AUTO) 10.2 % (1.0-10.0); NEUTROPHILS % (AUTO) 74.5 % (45.0-75.0); PLATELET COUNT 229 K/UL (150-450); RED BLOOD COUNT 3.31 M/UL (4.20-5.40); RED CELL DISTRIBUTION WIDTH 17.6 % (11.6-14.8); WHITE BLOOD COUNT 10.9 K/UL (4.8-10.8)
[2018-09-30 08:11] LABS: ANION GAP 7 mmol/L (5-15); BLOOD UREA NITROGEN 11 mg/dL (7-18); CALCIUM 8.3 MG/DL (8.5-10.1); CARBON DIOXIDE 25 MMOL/L (21-32); CHLORIDE 106 MMOL/L (98-107); CREATININE 0.9 MG/DL (0.55-1.30); POTASSIUM 4.4 MMOL/L (3.5-5.1); SODIUM 138 MMOL/L (136-145)
--- NOTE | 2018-09-30 08:29 | Progress Note ---
DATE: 09/28/2018 SUBJECTIVE: No issues overnight. The patient has moderate discomfort and pain. PHYSICAL EXAMINATION: VITAL SIGNS: Afebrile and stable vital signs. EXTREMITIES: Posterior splint is in place. Posterior calf is soft. ASSESSMENT: Left periprosthetic femur fracture. DISCUSSION: At this point, we will try to make her NPO after midnight in anticipation of surgery tomorrow as long as there are no medical issues. We are still trying to get in contact with to initiate possible transfer to [facility] where she wishes to have her care taken. We will try to contact them tomorrow if possible in order to start the transfer process if he is available and willing to accept the care. In the meantime, we will make her NPO after breakfast in anticipation of surgery Rogelio Rivera M.D. DR: Jose JOB#: [id number] CC:
--- NOTE | 2018-09-30 08:59 | Consultation ---
DATE OF CONSULTATION: 09/27/2018 CONSULTING PHYSICIAN: Rogelio Rivera M.D. CHIEF COMPLAINT: Left thigh pain. HISTORY OF PRESENT ILLNESS: The patient is a 67-year-old female who sustained a mechanical fall, also has significant pain and difficulty bearing weight in the left leg. She was brought to the emergency room where she was diagnosed with periprosthetic fracture. Orthopedic consultation was obtained for further care and recommendation. PAST MEDICAL HISTORY: Reviewed from the intake chart. SURGICAL HISTORY: Reviewed from the intake chart MEDICATIONS: Reviewed from the intake chart. PHYSICAL EXAMINATION: The patient has a posterior splint in place. Posterior calf is soft. Neurovascular exam is normal. IMAGING STUDIES: Show periprosthetic short transverse distal third femur fracture with possible nondisplaced extension into the distal aspect of the shaft. ASSESSMENT: Left periprosthetic femur fracture. DISCUSSION: At this point, what we are going to do is go ahead and get her ready for a surgery Saturday if medically possible. The patient does have a primary orthopedic surgeon, , who would like to have her take care of the surgery if possible out of the state and will be returning on Saturday. We will try to see if we can potentially transfer to [facility] or proceed with the surgery on Saturday if possible. Rogelio Rivera M.D. DR: GISELLE JOB#: [id number] CC:
[2018-09-30] MEDS: Docusate 100mg cap ORAL SCH ×3 (09:00→18:00)
[2018-09-30] MEDS: Enoxaparin 40mg Inj SUBQ SCH (09:00)
--- NOTE | 2018-09-30 09:31 | Nephrology Progress Note ---
Assessment/Plan Assessment/Plan A/P 1) transverse distal femoral diaphysis fracture with 4 cm displaced overlap - Surgery planned once fever cleared by ID - Urine and Bld cx collected 2) HTN- stable 3) Hypothyroid- cytomel 4) DVT prophylaxsis with lovenox on hold per Ortho order 5) Anemia- Hgb stable at 8.3 Heme management stable Subjective Allergies: Coded Allergies: No Known Allergies (Unverified , 09/26/18) Subjective Patient still with left leg pain. Surgery planned once patient cleared by ID Objective Last 24 Hour Vital Signs Date Time Temp Pulse Resp B/P (MAP) Pulse Ox O2 Delivery O2 Flow Rate FiO2 09/30/18 08:27 99.4 09/30/18 08:00 99.4 84 18 136/76 (96) 96 09/30/18 04:22 97.9 62 18 110/83 (92) 97 09/29/18 23:55 97.9 81 18 107/61 (76) 96 09/29/18 21:15 89.4 09/29/18 21:00 Room Air 09/29/18 20:05 84 140/70 09/29/18 19:04 101.2 09/29/18 18:12 100.8 09/29/18 17:59 101.4 09/29/18 16:00 100.4 90 21 134/66 (88) 97 90 09/29/18 15:09 98.1 09/29/18 13:00 98.1 09/29/18 12:00 100.6 86 21 127/81 (96) 96 86 Intake and Output 09/29/18 09/30/18 19:00 07:00 Intake Total 1060 ml Output Total 900 ml 700 ml Balance -900 ml 360 ml Intake Oral 1000 ml IV Total 60 ml Output Urine Total 900 ml 700 ml # Voids 1 # Bowel Movements 1 1 Laboratory Tests 09/29/18 11:10: Prothrombin Time 11.5, Prothromb Time International Ratio 1.1 09/30/18 07:15: White Blood Count 10.9H, Red Blood Count 3.31L, Hemoglobin 8.3L, Hematocrit 27.1L, Mean Corpuscular Volume 82, Mean Corpuscular Hemoglobin 25.2L, Mean Corpuscular Hemoglobin Concent 30.8L, Red Cell Distribution Width 17.6H, Platelet Count 229, Mean Platelet Volume 8.7, Neutrophils (%) (Auto) 74.5, Lymphocytes (%) (Auto) 11.4L, Monocytes (%) (Auto) 10.2H, Eosinophils (%) (Auto ) 3.3H, Basophils (%) (Auto) 0.6, Sodium Level 138, Potassium Level 4.4, Chloride Level 106, Carbon Dioxide Level 25, Anion Gap 7, Blood Urea Nitrogen 11 , Creatinine 0.9, Estimat Glomerular Filtration Rate > 60, Glucose Level 115H, Calcium Level 8.3L Height (Feet): 5 Height (Inches): 10.00 Weight (Pounds): 279 General Appearance: no apparent distress, alert EENT: normal ENT inspection Neck: normal alignment, supple Cardiovascular: normal rate, regular rhythm Respiratory/Chest: lungs clear, normal breath sounds Abdomen: non tender, soft Edema: no edema noted Arm (L), no edema noted Arm (R), no edema noted Leg (L), no edema noted Leg (R), no edema noted Pedal (L), no edema noted Pedal (R), no edema noted Generalized Patel Gray MD Sep 30, 2018 09:31
[2018-09-30] MEDS ORDERED: HYDROmorphone 1mg/ml Carpuject IVP PRN (09:45)
[2018-09-30] MEDS: Liothyronine 5mcg tab ORAL SCH (09:56)
[2018-09-30] MEDS: Carvedilol 25mg Tab ORAL SCH ×2 (09:56→22:15)
--- NOTE | 2018-09-30 11:12 | Consultation ---
Consult Note Consult Note # [id number] Charlie Jesus MD Sep 30, 2018 11:12
[2018-09-30] MEDS: cefTRIAXone 2 GM in D5W 55 ML IVPB SCH (12:38)
--- NOTE | 2018-09-30 14:49 | General Progress Note ---
Assessment/Plan Status: stable Assessment/Plan # Anemia of iron deficiency. Reviewed the patient's prior laboratories from [facility]. The patient does have iron deficiency. --> Administer IV iron x5 days ==> The patient is status post colonoscopy EGD, and capsule endoscopy in the past. She had been seen by GI Service and seen by Dr. Hernandez at [facility] --> Has been given one dose of Procrit --> given prbc prn, Maintain hemoglobin above 8. --> Preoperative clearance as per pcp # Anemia, rule out GI bleed. She has had colonoscopy, capsule endoscopy in the past no evidence of bleed --> anemia panel has been reviewed as well --> gi occult was ++ # Leukocytosis, likely secondary to reactive process from anemia. --> Currently, WBC remains elevated --> smear reviewed # Transverse left leg metatarsal fracture, to undergo surgery on Saturday. --> surgery 09/30 Appreciate consultation greatly! Subjective Date patient seen: Sep 30, 2018 ROS Limited/Unobtainable: Yes Hematologic/Lymphatic: Reports: anemia Allergies: Coded Allergies: No Known Allergies (Unverified , 09/26/18) Subjective Pt refusing transfer for surgery and requesting to have it done here. Objective Last 24 Hour Vital Signs Date Time Temp Pulse Resp B/P (MAP) Pulse Ox O2 Delivery O2 Flow Rate FiO2 09/30/18 12:29 99.3 09/30/18 12:00 99.3 90 19 130/73 (92) 98 09/30/18 09:57 84 136/76 09/30/18 09:56 84 136/76 09/30/18 09:00 Room Air 09/30/18 08:27 99.4 09/30/18 08:00 99.4 84 18 136/76 (96) 96 09/30/18 04:22 97.9 62 18 110/83 (92) 97 09/29/18 23:55 97.9 81 18 107/61 (76) 96 09/29/18 21:15 89.4 09/29/18 21:00 Room Air 09/29/18 20:05 84 140/70 09/29/18 19:04 101.2 09/29/18 18:12 100.8 09/29/18 17:59 101.4 09/29/18 16:00 100.4 90 21 134/66 (88) 97 90 09/29/18 15:09 98.1 Intake and Output 09/29/18 09/30/18 18:59 06:59 Intake Total 1060 ml Output Total 900 ml 700 ml Balance -900 ml 360 ml Intake Oral 1000 ml IV Total 60 ml Output Urine Total 900 ml 700 ml # Voids 1 # Bowel Movements 1 1 Laboratory Tests 09/30/18 07:15: White Blood Count 10.9H, Red Blood Count 3.31L, Hemoglobin 8.3L, Hematocrit 27.1L, Mean Corpuscular Volume 82, Mean Corpuscular Hemoglobin 25.2L, Mean Corpuscular Hemoglobin Concent 30.8L, Red Cell Distribution Width 17.6H, Platelet Count 229, Mean Platelet Volume 8.7, Neutrophils (%) (Auto) 74.5, Lymphocytes (%) (Auto) 11.4L, Monocytes (%) (Auto) 10.2H, Eosinophils (%) (Auto ) 3.3H, Basophils (%) (Auto) 0.6, Sodium Level 138, Potassium Level 4.4, Chloride Level 106, Carbon Dioxide Level 25, Anion Gap 7, Blood Urea Nitrogen 11 , Creatinine 0.9, Estimat Glomerular Filtration Rate > 60, Glucose Level 115H, Calcium Level 8.3L Height (Feet): 5 Height (Inches): 10.00 Weight (Pounds): 279 General Appearance: no apparent distress EENT: PERRL/EOMI Neck: normal alignment Cardiovascular: normal peripheral pulses Respiratory/Chest: no respiratory distress Abdomen: soft Objective Gen: Nad Pulm: CTAB, no cwr CV: Rrr, no mgr Abd: soft, nd Ext: no cce Robbi Wilcox MD Sep 30, 2018 14:49
[2018-09-30] MEDS ORDERED: Midazolam 2mg/2ml Inj ONE ×2 (15:48→19:35)
[2018-09-30] MEDS ORDERED: fentaNYL 100 mcg/2 mL IV ONE (15:48)
[2018-09-30] MEDS ORDERED: Bupivacaine w/Epi 0.25% 30ml Vial INJ ONE (15:53)
[2018-09-30] MEDS ORDERED: Bacitracin 50000 Units Vial ONE ×2 (15:53→18:36)
[2018-09-30] MEDS ORDERED: NeoSporin Gu Irrig 1ml Amp IRRIG ONE ×2 (15:53→18:36)
--- NOTE | 2018-09-30 17:06 | Pre-Procedure Note/Attestation ---
Pre-Procedure Note/Attestation Complete Prior to Procedure Planned Procedure: left Procedure Narrative: femur orif Indications for Procedure Pre-Operative Diagnosis: left periprosthetic femur fracture Attestation I attest that I discussed the nature of the procedure; its benefits; risks and complications; and alternatives (and the risks and benefits of such alternatives ), prior to the procedure, with the patient (or the patient's legal underwriting service representative). I attest that, if there was a reasonable possibility of needing a blood transfusion, the patient (or the patient's legal underwriting service representative) was given the [facility] standardized written summary, pursuant to the [place] Blood Safety Act ([place] Health and Safety Code # 1645, as amended). I attest that I re-evaluated the patient just prior to the surgery and that there has been no change in the patient's H&P, except as documented below: Rogelio Rivera MD Sep 30, 2018 17:06
--- NOTE | 2018-09-30 17:06 | Operative Note - PDOC ---
Operative Note Operative Note Pre-op Diagnosis: left periprosthetic femur fracture Procedure: see op report Post-op Diagnosis: same as pre-op plus Specimen: none Complications: none Condition: stable Estimated Blood Loss: volume Drains: none Implant(s) used?: Yes Rogelio Rivera MD Sep 30, 2018 17:06
[2018-09-30] MEDS ORDERED: Milk of Magnesia 30ml Ud ORAL PRN ×2 (17:15→19:45)
[2018-09-30] MEDS ORDERED: HYDROcodone/Acetamin 7.5/325 tab ORAL PRN (17:15)
[2018-09-30] MEDS ORDERED: Norco 5mg/325mg tab ORAL PRN (17:15)
[2018-09-30] MEDS ORDERED: NS Irrig 1000ml IRRIG ONE (17:40)
[2018-09-30] MEDS ORDERED: LR 1000ml 1,000 ML IVLG SCH (17:52)
[2018-09-30] MEDS ORDERED: fentaNYL 100 mcg/2 mL IV PRN (18:00)
[2018-09-30] MEDS ORDERED: Midazolam 2mg/2ml Inj IVP PRN (18:00)
[2018-09-30] MEDS ORDERED: DiphenhydrAMINE 50mg/ml Inj IVP PRN (18:00)
[2018-09-30] MEDS ORDERED: Acetaminophen (Non formulary) 100 ML IV ONE (18:00)
[2018-09-30] MEDS ORDERED: Meperidine 50mg/ml Inj(FOR RIGORS ONLY) IV PRN (18:00)
[2018-09-30] MEDS ORDERED: Morphine Sulfate 10mg/ml Inj ONE (18:14)
--- NOTE | 2018-09-30 18:15 | Consultation ---
DATE OF CONSULTATION: 09/30/2018 CONSULTING PHYSICIAN: Charlie Jesus M.D. REQUESTING PHYSICIAN: Patel Gray M.D. REASON FOR CONSULTATION: Evaluation of the patient for fever. HISTORY OF PRESENT ILLNESS: The patient is a 67-year-old female with multiple medical problems, who was admitted to this medical center after a fall and developed left lower extremity fracture ( distal femoral fracture). The patient has been stable and surgery has been put on hold. Infectious Disease consultation has been requested for further evaluation of the patient and antibiotic management. PAST MEDICAL HISTORY: 1. Multiple sclerosis. 2. Hypertension. 3. Atrial fibrillation. MEDICATION: Off of antibiotics. ALLERGIES: No known drug allergies. SOCIAL HISTORY: The patient lives at home. FAMILY HISTORY: Not contributing. REVIEW OF SYSTEMS: HEENT: No recent change in vision or hearing. PULMONARY: No cough. CARDIOVASCULAR: No significant palpitations. GASTROINTESTINAL/ABDOMEN: No nausea or vomiting. GENITOURINARY: No dysuria. The patient has Swanson catheter. MUSCULOSKELETAL: As mentioned above. The patient has history of bilateral knee replacement in the past. PHYSICAL EXAMINATION: GENERAL: The patient has no chills. No history of fever prior to admission to the hospital. VITAL SIGNS: T-max 101.2, pulse 86, respiratory rate 18, and blood pressure 150/73. HEENT: No pale conjunctivae. No icterus. NECK: No lymphadenopathy. CHEST: Clear. HEART: S1 and S2. ABDOMEN: Soft, obese, and nontender. EXTREMITY: The patient has swelling around the left knee. Tender in touch. Area is covered by dressing. NEUROLOGIC: Awake and alert. SKIN: No rash. LABORATORY DATA: White blood cells 10.9, hemoglobin 8.3, and platelets 229,000. UA, at the time of admission, unremarkable. BUN 11 and creatinine 0.9. ALT and AST unremarkable. Alkaline phosphatase unremarkable. Blood culture from 09/28/2018 pending. ASSESSMENT: The patient is a 67-year-old female with, 1. Fever (appears to be due to acute stress/blood transfusion). The patient has no symptoms to suggest any infectious process. The patient did not have fever prior to admission. Sources for infection process is low. 2. Mild leukocytosis (mostly due to acute stress). 3. History of multiple sclerosis. 4. History of hypertension. 5. History of atrial fibrillation. 6. Status post multiple falls at home. 7. Left periprosthetic femur fracture, surgery is pending. PLAN: 1. We will start the patient on Rocephin empirically for now in view of the patient going for surgery. 2. Monitor CBC. 3. Monitor BMP. 4. Monitor cultures (blood, urine). 5. Surgery has been put on hold for the last four days in view of probability for infectious process and the patient may proceed with surgery. Wean off of antibiotics soon if the patient stays stable and cultures remain negative. Thank you for this consultation. I will follow the patient with you during this admission. Charlie Jesus M.D. DR: ONIEL JOB#: [id number] CC:
[2018-09-30] MEDS ORDERED: Vancomycin 1gm inj IVPB ONE (18:36)
--- NOTE | 2018-09-30 19:47 | Immediate Post-Op Evaluation ---
Immediate Post-Op Evalulation Immediate Post-Op Evalulation Procedure: ORIF left distal femur fracture Date of Evaluation: Sep 30, 2018 Time of Evaluation: 19:45 IV Fluids: 1100 Blood Products: 1 unit of PRBC Estimated Blood Loss: 200 Urinary Output: 100 Blood Pressure Systolic: 122 Blood Pressure Diastolic: 58 Pulse Rate: 86 Respiratory Rate: 20 O2 Sat by Pulse Oximetry: 99 Temperature (Fahrenheit): 98.6 Pain Score (1-10): 2 Nausea: No Vomiting: No Complications none Patient Status: awake, patent, none Hydration Status: adequate Sav Morales MD Sep 30, 2018 19:47
[2018-09-30] MEDS ORDERED: Ketorolac 30mg Inj IV SCH (20:26)
--- NOTE | 2018-09-30 20:30 | Operative Note - Dictated ---
DATE OF OPERATION: 09/30/2018 SURGEON: Rogelio Rivera M.D. PREOPERATIVE DIAGNOSIS: 1. Left periprosthetic femur fracture. 2. BMI over 45. PROCEDURE: Open reduction and internal fixation of left femur periprosthetic fracture complicated by knee implant as well as BMI of over 45. ANESTHESIA: General. INDICATION FOR PROCEDURE: The patient is a pleasant 67-year-old who has had a mechanical fall, diagnosed with a distal femur fracture, and indicated for operative fixation. Risks, limitations, expectations, and complications of the procedure were discussed in detail. All questions were addressed. DESCRIPTION OF PROCEDURE: After informed consent was obtained, the patient was brought to the operating room. The patient was placed under general anesthesia. The skin incision was marked out. Ancef was administered. Time-out was performed. A lateral skin incision was then made. IT band was incised. Vastus lateralis was mobilized anteriorly. The femur ends were then identified and reduction was performed. Once the reduction was confirmed, the plate was placed along the lateral aspect of the femur. Multiple cortical screws were placed proximally and distally. Once that was done, the wound was copiously irrigated. The fascia vin was approximated with #1 Vicryl suture. Subcutaneous tissue was approximated with #1 Vicryl suture, 2-0 Vicryl suture, 3-0 Monocryl, and Dermabond. Compression dressing was applied. The patient was awoken and taken to recovery room with stable vital signs. ESTIMATED BLOOD LOSS: 100 mL. COMPLICATIONS: None. SPECIMENS: None. IMPLANTS: Include [place] distal femoral plate with multiple cortical and locking screws. Rogelio Rivera M.D. DR: Lori JOB#: [id number] CC:
[2018-09-30] MEDS: Iron Sucrose 100 MG in NS 55 ML IV SCH (21:00)
[2018-09-30] MEDS ORDERED: oxyCONTIN 20mg tab ORAL SCH (22:00)
[2018-09-30] MEDS ORDERED: D5 1/2NS w/KCl 20mEq 1,000 ML IV SCH (22:00)
[2018-09-30] MEDS ORDERED: ceFAZolin sod 2 GM in D5W 110 ML IV SCH (22:00)
[2018-10-01 00:18] VITALS: BP 103/63
[2018-10-01] MEDS: HYDROmorphone 1mg/ml Carpuject SUBQ PRN ×2 (03:10→12:47)
[2018-10-01 04:29] VITALS: BP 110/64
[2018-10-01] MEDS: Enoxaparin 40mg Inj SUBQ SCH (07:11)
[2018-10-01 08:00] VITALS: BP 110/60
[2018-10-01] MEDS ORDERED: Ketorolac 60mg Inj IM SCH (08:15)
--- NOTE | 2018-10-01 08:15 | General Progress Note ---
Assessment/Plan Assessment/Plan # Anemia of iron deficiency. Reviewed the patient's prior laboratories from [facility]. The patient does have iron deficiency. --> Administer IV iron x5 days --> The patient is status post colonoscopy EGD, and capsule endoscopy in the past. She had been seen by GI Service and seen by Dr. Hernandez at [facility] --> Has been given one dose of Procrit --> given prbc prn, Maintain hemoglobin above 8. --> Preoperative clearance as per pcp --> epogen has been given x 1 dose # Anemia, s/p surgery. She has had colonoscopy, capsule endoscopy in the past no evidence of bleed --> anemia panel has been reviewed as well --> gi occult was ++ # Leukocytosis, likely secondary to reactive process from anemia. --> Currently, wbc remains elevated --> smear reviewed # Transverse left leg metatarsal fracture, to undergo surgery on Saturday. --> surgery 09/30 completed --> appreciate Dr. Mercado Appreciate consultation greatly! Subjective Cardiovascular: Denies: no symptoms, chest pain, edema, irregular heart rate, lightheadedness, palpitations, syncope, other Respiratory: Denies: no symptoms, cough, orthopnea, shortness of breath, SOB with excertion, SOB at rest, sputum, stridor, wheezing, other Genitourinary: Denies: no symptoms, burning, discharge, frequency, flank pain, hematuria, incontinence, pain, urgency, other Neurologic/Psychiatric: Denies: no symptoms, anxiety, depressed, emotional problems, headache, numbness, paresthesia, pre-existing deficit, seizure, tingling, tremors, weakness, other Endocrine: Denies: no symptoms, excessive sweating, flushing, intolerance to cold, intolerance to heat, increased hunger, increased thirst, increased urine, unexplained weight gain, unexplained weight loss, other Hematologic/Lymphatic: Denies: no symptoms, anemia, easy bleeding, easy bruising, other Allergies: Coded Allergies: No Known Allergies (Unverified , 09/26/18) Subjective somehwhat altered after pain meds given, will order toradol Objective Last 24 Hour Vital Signs Date Time Temp Pulse Resp B/P (MAP) Pulse Ox O2 Delivery O2 Flow Rate FiO2 10/01/18 04:29 98.3 86 19 110/64 (79) 95 10/01/18 00:18 98.0 82 18 103/63 (76) 94 09/30/18 22:15 82 115/69 09/30/18 21:00 Room Air 09/30/18 20:58 98.6 82 19 115/69 (84) 95 09/30/18 20:53 97.4 09/30/18 20:53 97.4 09/30/18 20:22 97.4 90 22 123/60 96 Room Air 09/30/18 20:14 90 22 128/79 98 Room Air 09/30/18 20:05 90 22 128/79 98 Room Air 09/30/18 19:50 90 22 128/79 98 Room Air 09/30/18 19:47 86 20 99 09/30/18 19:44 90 22 128/79 98 Room Air 09/30/18 19:39 99.5 90 22 128/79 98 Simple Mask 5 09/30/18 16:00 99.2 78 20 118/70 (86) 97 09/30/18 12:29 99.3 09/30/18 12:00 99.3 90 19 130/73 (92) 98 09/30/18 09:57 84 136/76 09/30/18 09:56 84 136/76 09/30/18 09:00 Room Air 09/30/18 08:27 99.4 Intake and Output 09/30/18 10/01/18 19:00 07:00 Intake Total 2455 ml Output Total 500 ml Balance 1955 ml Intake Oral 480 ml IV Total 1725 ml Blood Product 250 ml Output Urine Total 300 ml Estimated Blood Loss 200 ml # Voids 1 Height (Feet): 5 Height (Inches): 10.00 Weight (Pounds): 279 Objective Gen: Nad, somewhat tired and anxious s/p surgery Pulm: CTAB, no cwr CV: Rrr, no mgr Abd: soft, nd Ext: no cce, left extremity dressing c/d/i Robbi Wilcox MD Oct 01, 2018 08:15
[2018-10-01] MEDS: Liothyronine 5mcg tab ORAL SCH (08:45)
[2018-10-01] MEDS: Docusate 100mg cap ORAL SCH ×3 (08:46→17:47)
[2018-10-01] MEDS: Carvedilol 25mg Tab ORAL SCH ×2 (08:46→20:19)
[2018-10-01 08:53] LABS: BASOPHILS % (AUTO) 0.8 % (0.0-2.0); EOSINOPHILS % (AUTO) 2.8 % (0.0-3.0); HEMATOCRIT 29.5 % (37.0-47.0); HEMOGLOBIN 9.3 G/DL (12.0-16.0); LYMPHOCYTES % (AUTO) 8.2 % (20.0-45.0); MEAN CORPUSCULAR VOLUME 83 FL (80-99); MONOCYTES % (AUTO) 10.7 % (1.0-10.0); NEUTROPHILS % (AUTO) 77.4 % (45.0-75.0); PLATELET COUNT 256 K/UL (150-450); RED BLOOD COUNT 3.54 M/UL (4.20-5.40); RED CELL DISTRIBUTION WIDTH 17.5 % (11.6-14.8); WHITE BLOOD COUNT 12.2 K/UL (4.8-10.8)
[2018-10-01] MEDS ORDERED: oxyCONTIN 20mg tab ORAL SCH (09:00)
--- NOTE | 2018-10-01 09:09 | Nephrology Progress Note ---
Assessment/Plan Assessment/Plan A/P 1) Transverse distal femoral diaphysis fracture with 4 cm displaced overlap - ORIF left distal femur fracture - DC to rehab 2) HTN- stable 3) Hypothyroid- cytomel 4) Anemia- Heme management DC to rehab Subjective Date patient seen: Oct 01, 2018 Time patient seen: 09:06 ROS Limited/Unobtainable: No Allergies: Coded Allergies: No Known Allergies (Unverified , 09/26/18) Subjective Patient seems a little disoriented from narcotics Objective Last 24 Hour Vital Signs Date Time Temp Pulse Resp B/P (MAP) Pulse Ox O2 Delivery O2 Flow Rate FiO2 10/01/18 08:46 79 110/60 10/01/18 08:45 79 110/60 10/01/18 08:00 98.0 79 21 110/60 (77) 96 10/01/18 04:29 98.3 86 19 110/64 (79) 95 10/01/18 00:18 98.0 82 18 103/63 (76) 94 09/30/18 22:15 82 115/69 09/30/18 21:00 Room Air 09/30/18 20:58 98.6 82 19 115/69 (84) 95 09/30/18 20:53 97.4 09/30/18 20:53 97.4 09/30/18 20:22 97.4 90 22 123/60 96 Room Air 09/30/18 20:14 90 22 128/79 98 Room Air 09/30/18 20:05 90 22 128/79 98 Room Air 09/30/18 19:50 90 22 128/79 98 Room Air 09/30/18 19:47 86 20 99 09/30/18 19:44 90 22 128/79 98 Room Air 09/30/18 19:39 99.5 90 22 128/79 98 Simple Mask 5 09/30/18 16:00 99.2 78 20 118/70 (86) 97 09/30/18 12:29 99.3 09/30/18 12:00 99.3 90 19 130/73 (92) 98 09/30/18 09:57 84 136/76 09/30/18 09:56 84 136/76 Intake and Output 09/30/18 10/01/18 19:00 07:00 Intake Total 2455 ml Output Total 500 ml Balance 1955 ml Intake Oral 480 ml IV Total 1725 ml Blood Product 250 ml Output Urine Total 300 ml Estimated Blood Loss 200 ml # Voids 1 Laboratory Tests 10/01/18 08:20: White Blood Count [Pending], Red Blood Count [Pending], Hemoglobin [Pending], Hematocrit [Pending], Mean Corpuscular Volume [Pending], Mean Corpuscular Hemoglobin [Pending], Mean Corpuscular Hemoglobin Concent [Pending], Red Cell Distribution Width [Pending], Platelet Count [Pending], Mean Platelet Volume [ Pending], Neutrophils (%) (Auto) [Pending], Lymphocytes (%) (Auto) [Pending], Monocytes (%) (Auto) [Pending], Eosinophils (%) (Auto) [Pending], Basophils (%) (Auto) [Pending], Sodium Level [Pending], Potassium Level [Pending], Chloride Level [Pending], Carbon Dioxide Level [Pending], Blood Urea Nitrogen [Pending], Creatinine [Pending], Estimat Glomerular Filtration Rate [Pending], Glucose Level [Pending], Calcium Level [Pending] Height (Feet): 5 Height (Inches): 10.00 Weight (Pounds): 279 General Appearance: no apparent distress EENT: normal ENT inspection Neck: normal alignment, supple Cardiovascular: normal rate, regular rhythm Respiratory/Chest: lungs clear, normal breath sounds Abdomen: non tender, soft Edema: no edema noted Arm (L), no edema noted Arm (R), no edema noted Leg (L), no edema noted Leg (R), no edema noted Pedal (L), no edema noted Pedal (R), no edema noted Generalized Patel Gray MD Oct 01, 2018 09:08
--- NOTE | 2018-10-01 09:24 | 48 Hour Post Anesthesia Eval ---
Post Anesthesia Evaluation Procedure: ORIF left distal femur fracture Date of Evaluation: Oct 01, 2018 Time of Evaluation: 09:23 Blood Pressure Systolic: 110 0: 60 Pulse Rate: 68 Respiratory Rate: 20 Temperature (Fahrenheit): 97.6 O2 Sat by Pulse Oximetry: 98 Airway: patent Nausea: No Vomiting: No Pain Intensity: 3 Hydration Status: adequate Cardiopulmonary Status: stable Mental Status/LOC: patient returned to baseline Follow-up Care/Observations: n/a Post-Anesthesia Complications: none Follow-up care needed: N/A Sav Morales MD Oct 01, 2018 09:24
[2018-10-01 09:27] LABS: ANION GAP 7 mmol/L (5-15); BLOOD UREA NITROGEN 15 mg/dL (7-18); CALCIUM 8.7 MG/DL (8.5-10.1); CARBON DIOXIDE 26 MMOL/L (21-32); CHLORIDE 104 MMOL/L (98-107); CREATININE 1.1 MG/DL (0.55-1.30); POTASSIUM 4.3 MMOL/L (3.5-5.1); SODIUM 137 MMOL/L (136-145)
[2018-10-01] MEDS: oxyCODONE 5mg IR tab ORAL PRN ×2 (11:14→19:32)
[2018-10-01 12:00] VITALS: BP 120/59
--- NOTE | 2018-10-01 12:12 | Diagnostic Imaging Report ---
Indication: Left thigh pain Findings: 6 fluoroscopic views of the left femur were obtained. Intraoperative imaging showing a lateral compression plate several screws reducing a fracture of the distal femur. A knee prosthesis is noted. IMPRESSION: Intraoperative imaging
[2018-10-01] MEDS: cefTRIAXone 2 GM in D5W 55 ML IVPB SCH (12:47)
--- NOTE | 2018-10-01 15:58 | Infectious Diseases Prog Note ---
Assessment/Plan Assessment/Plan ASSESSMENT: The patient is a 67-year-old female with, Fever (appears to be due to acute stress/blood transfusion). less likely infectious process. T Mild leukocytosis (mostly due to acute stress / post op) UCx : Mixed GNR ( contaminant ) Status post multiple falls at home. Left periprosthetic femur fracture, sp ORIF ( 09/30) Multiple sclerosis. Hypertension. Atrial fibrillation. PLAN: t on Rocephin d# 2 empirically for now ( may stop soon ) Monitor CBC Monitor BMP. Monitor cultures (blood, urine) Dc to Rehab Subjective Allergies: Coded Allergies: No Known Allergies (Unverified , 09/26/18) Subjective SP ORIF of left femur Objective Vital Signs Last 24 Hour Vital Signs Date Time Temp Pulse Resp B/P (MAP) Pulse Ox O2 Delivery O2 Flow Rate FiO2 10/01/18 13:17 98.7 10/01/18 12:00 98.7 72 20 120/59 (79) 96 10/01/18 09:24 68 20 98 10/01/18 09:00 Room Air 10/01/18 08:46 79 110/60 10/01/18 08:45 79 110/60 10/01/18 08:44 97.6 10/01/18 08:00 98.0 79 21 110/60 (77) 96 10/01/18 04:29 98.3 86 19 110/64 (79) 95 10/01/18 00:18 98.0 82 18 103/63 (76) 94 09/30/18 22:15 82 115/69 09/30/18 21:00 Room Air 09/30/18 20:58 98.6 82 19 115/69 (84) 95 09/30/18 20:53 97.4 09/30/18 20:53 97.4 09/30/18 20:22 97.4 90 22 123/60 96 Room Air 09/30/18 20:14 90 22 128/79 98 Room Air 09/30/18 20:05 90 22 128/79 98 Room Air 09/30/18 19:50 90 22 128/79 98 Room Air 09/30/18 19:47 86 20 99 09/30/18 19:44 90 22 128/79 98 Room Air 09/30/18 19:39 99.5 90 22 128/79 98 Simple Mask 5 09/30/18 16:00 99.2 78 20 118/70 (86) 97 Height (Feet): 5 Height (Inches): 10.00 Weight (Pounds): 279 HEENT: anicteric Respiratory/Chest: no respiratory distress Cardiovascular: regularly irregular Abdomen: no organomegaly Microbiology Date/Time Source Procedure Growth Status 09/30/18 08:25 Indwelling Cath Urine Culture - Preliminary Mixed Gram Positive Organism Resulted Laboratory Tests Test 10/01/18 08:20 White Blood Count 12.2 K/UL (4.8-10.8) H Red Blood Count 3.54 M/UL (4.20-5.40) L Hemoglobin 9.3 G/DL (12.0-16.0) L Hematocrit 29.5 % (37.0-47.0) L Mean Corpuscular Volume 83 FL (80-99) Mean Corpuscular Hemoglobin 26.2 PG (27.0-31.0) L Mean Corpuscular Hemoglobin Concent 31.5 G/DL (32.0-36.0) L Red Cell Distribution Width 17.5 % (11.6-14.8) H Platelet Count 256 K/UL (150-450) Mean Platelet Volume 8.0 FL (6.5-10.1) Neutrophils (%) (Auto) 77.4 % (45.0-75.0) H Lymphocytes (%) (Auto) 8.2 % (20.0-45.0) L Monocytes (%) (Auto) 10.7 % (1.0-10.0) H Eosinophils (%) (Auto) 2.8 % (0.0-3.0) Basophils (%) (Auto) 0.8 % (0.0-2.0) Sodium Level 137 MMOL/L (136-145) Potassium Level 4.3 MMOL/L (3.5-5.1) Chloride Level 104 MMOL/L (98-107) Carbon Dioxide Level 26 MMOL/L (21-32) Anion Gap 7 mmol/L (5-15) Blood Urea Nitrogen 15 mg/dL (7-18) Creatinine 1.1 MG/DL (0.55-1.30) Estimat Glomerular Filtration Rate 49.9 mL/min (>60) Glucose Level 110 MG/DL (74-106) H Calcium Level 8.7 MG/DL (8.5-10.1) Current Medications Medications (Trade) Dose Ordered Sig/Tom Route PRN Reason Start Time Stop Time Status Last Admin Dose Admin Acetaminophen (Tylenol) 650 mg Q8H PRN ORAL Fever/Headache/Mild Pain 09/27/18 19:23 10/27/18 19:22 09/29/18 20:10 Amlodipine Besylate (Norvasc) 5 mg DAILY ORAL 09/27/18 09:00 10/27/18 08:59 10/01/18 08:45 Aspirin (ASA) 325 mg DAILY ORAL 09/27/18 09:00 10/27/18 08:59 10/01/18 08:45 Carvedilol (Coreg) 25 mg EVERY 12 HOURS ORAL 09/27/18 09:00 10/27/18 08:59 10/01/18 08:46 Ceftriaxone Sodium 2 gm/ Dextrose 55 ml @ 110 mls/hr Q24H IVPB 09/30/18 12:30 10/07/18 12:29 10/01/18 12:47 Dextrose (Dextrose 50%) 25 ml Q30M PRN IV Hypoglycemia 09/27/18 02:15 10/27/18 02:14 Dextrose (Dextrose 50%) 50 ml Q30M PRN IV Hypoglycemia 09/27/18 02:15 10/27/18 02:14 Diphenhydramine HCl (Benadryl) 25 mg Q8H PRN IVP Itching 09/28/18 17:15 10/28/18 17:14 09/28/18 17:25 Docusate Sodium (Colace) 100 mg THREE TIMES A DAY ORAL 10/01/18 09:00 10/31/18 08:59 10/01/18 12:47 Enoxaparin Sodium (Lovenox) 40 mg DAILY SUBQ 10/01/18 09:00 10/11/18 08:59 Famotidine (Pepcid) 40 mg DAILY ORAL 09/27/18 09:00 10/27/18 08:59 10/01/18 08:45 Ferrous Sulfate (Feosol) 325 mg THREE TIMES A DAY ORAL 10/04/18 09:00 11/03/18 08:59 Gabapentin (Neurontin) 300 mg THREE TIMES A DAY ORAL 09/27/18 09:00 10/27/18 08:59 10/01/18 12:47 Hydromorphone HCl (Dilaudid) 1 mg Q4H PRN SUBQ Mild Pain (Pain Scale 1-3) 09/30/18 17:15 10/07/18 17:14 10/01/18 12:47 Iron Sucrose 100 mg/Sodium Chloride 60 ml @ 240 mls/hr BEDTIME IV 10/01/18 21:00 10/03/18 21:14 Lactulose (Cephulac) 20 gm Q4H PRN ORAL Constipation 09/29/18 07:00 10/29/18 06:59 Liothyronine Sodium (Cytomel) 25 mcg DAILY ORAL 09/27/18 09:00 10/27/18 08:59 10/01/18 08:45 Magnesium Hydroxide (Mom) 30 ml DAILYPRN PRN ORAL Constipation 09/30/18 19:45 10/30/18 17:14 Ondansetron HCl (Zofran) 4 mg Q6H PRN IVP Nausea & Vomiting 09/27/18 02:15 10/27/18 02:14 Oxycodone HCl (Roxicodone) 5 mg Q4H PRN ORAL Breakthrough Pain 09/30/18 17:15 10/07/18 17:14 10/01/18 11:14 Prochlorperazine (Compazine) 25 mg Q12H PRN RECTAL Nausea & Vomiting 09/30/18 17:15 10/30/18 17:14 Charlie Jesus MD Oct 01, 2018 15:58
[2018-10-01 16:00] VITALS: BP 105/73
[2018-10-01 19:10] LABS: ANION GAP 8 mmol/L (5-15); BLOOD UREA NITROGEN 18 mg/dL (7-18); CALCIUM 8.1 MG/DL (8.5-10.1); CARBON DIOXIDE 24 MMOL/L (21-32); CHLORIDE 104 MMOL/L (98-107); CREATININE 1.2 MG/DL (0.55-1.30); POTASSIUM 4.5 MMOL/L (3.5-5.1); SODIUM 136 MMOL/L (136-145)
[2018-10-01 19:59] VITALS: BP 119/84
[2018-10-01] MEDS: Iron Sucrose 100 MG in NS 55 ML IV SCH (20:30)
[2018-10-01] MEDS: HYDROmorphone 1mg/ml Carpuject IVP PRN (20:36)
[2018-10-02 00:06] VITALS: BP 116/78
[2018-10-02] MEDS: HYDROmorphone 1mg/ml Carpuject IVP PRN ×4 (01:40→20:27)
[2018-10-02] MEDS: oxyCODONE 5mg IR tab ORAL PRN ×2 (02:24→11:00)
[2018-10-02] MEDS ORDERED: HYDROmorphone 1mg/ml Carpuject IVP SCH ×2 (04:45→08:30)
[2018-10-02 04:49] VITALS: BP 119/84
[2018-10-02 08:00] VITALS: BP 140/96
--- NOTE | 2018-10-02 08:35 | Nephrology Progress Note ---
Assessment/Plan Assessment/Plan A/P 1) Transverse distal femoral diaphysis fracture with 4 cm displaced overlap - ORIF left distal femur fracture Maliha - DC to rehab once placement arranged - pain being addressed with increase medication and while monitoring mental status 2) HTN- stable 3) Hypothyroid- cytomel 4) Anemia- Heme management Subjective Date patient seen: Oct 02, 2018 Time patient seen: 08:33 ROS Limited/Unobtainable: No Allergies: Coded Allergies: No Known Allergies (Unverified , 09/26/18) Subjective Patient still with left leg pain Objective Last 24 Hour Vital Signs Date Time Temp Pulse Resp B/P (MAP) Pulse Ox O2 Delivery O2 Flow Rate FiO2 10/02/18 05:15 98.2 10/02/18 04:49 98.2 84 20 119/84 (96) 100 10/02/18 02:10 98.4 10/02/18 00:06 98.4 79 18 116/78 (91) 98 10/01/18 20:19 84 119/84 10/01/18 20:15 Room Air 10/01/18 19:59 98.2 84 17 119/84 (96) 100 10/01/18 16:00 98.6 95 21 105/73 (84) 98 10/01/18 13:17 98.7 10/01/18 12:00 98.7 72 20 120/59 (79) 96 10/01/18 09:24 68 20 98 10/01/18 09:00 Room Air 10/01/18 08:46 79 110/60 10/01/18 08:45 79 110/60 10/01/18 08:44 97.6 Intake and Output 10/01/18 10/02/18 19:00 07:00 Intake Total 750 ml 540 ml Output Total 125 ml 750 ml Balance 625 ml -210 ml Intake Oral 600 ml 480 ml IV Total 150 ml 60 ml Output Urine Total 125 ml 750 ml # Voids 5 Laboratory Tests 10/01/18 18:25: Sodium Level 136, Potassium Level 4.5, Chloride Level 104, Carbon Dioxide Level 24, Anion Gap 8, Blood Urea Nitrogen 18, Creatinine 1.2, Estimat Glomerular Filtration Rate 45.1, Glucose Level 102, Calcium Level 8.1L Height (Feet): 5 Height (Inches): 10.00 Weight (Pounds): 279 General Appearance: no apparent distress, alert EENT: normal ENT inspection Neck: normal alignment, supple Cardiovascular: normal rate, regular rhythm Respiratory/Chest: lungs clear, normal breath sounds Abdomen: non tender, soft Edema: no edema noted Arm (L), no edema noted Arm (R), no edema noted Leg (L), no edema noted Leg (R), no edema noted Pedal (L), no edema noted Pedal (R), no edema noted Generalized Patel Gray MD Oct 02, 2018 08:35
[2018-10-02] MEDS: Carvedilol 25mg Tab ORAL SCH ×2 (08:50→21:00)
[2018-10-02] MEDS: Liothyronine 5mcg tab ORAL SCH (08:50)
[2018-10-02] MEDS: Docusate 100mg cap ORAL SCH ×3 (08:50→18:00)
[2018-10-02] MEDS: Enoxaparin 40mg Inj SUBQ SCH (09:00)
[2018-10-02 09:12] LABS: BASOPHILS % (AUTO) 1.1 % (0.0-2.0); EOSINOPHILS % (AUTO) 2.8 % (0.0-3.0); HEMATOCRIT 26.2 % (37.0-47.0); HEMOGLOBIN 8.3 G/DL (12.0-16.0); MEAN CORPUSCULAR VOLUME 84 FL (80-99); MONOCYTES % (AUTO) 14.7 % (1.0-10.0); NEUTROPHILS % (AUTO) 73.5 % (45.0-75.0); PLATELET COUNT 257 K/UL (150-450); RED BLOOD COUNT 3.14 M/UL (4.20-5.40); RED CELL DISTRIBUTION WIDTH 16.9 % (11.6-14.8); WHITE BLOOD COUNT 12.2 K/UL (4.8-10.8)
[2018-10-02 09:22] LABS: ANION GAP 9 mmol/L (5-15); BLOOD UREA NITROGEN 13 mg/dL (7-18); CALCIUM 8.3 MG/DL (8.5-10.1); CARBON DIOXIDE 24 MMOL/L (21-32); CHLORIDE 104 MMOL/L (98-107); CREATININE 0.9 MG/DL (0.55-1.30); POTASSIUM 4.2 MMOL/L (3.5-5.1); SODIUM 137 MMOL/L (136-145)
[2018-10-02 11:51] VITALS: BP 94/56
[2018-10-02] MEDS: cefTRIAXone 2 GM in D5W 55 ML IVPB SCH (13:02)
--- NOTE | 2018-10-02 13:39 | Infectious Diseases Prog Note ---
Assessment/Plan Assessment/Plan ASSESSMENT: The patient is a 67-year-old female with, Fever (appears to be due to acute stress/blood transfusion). SP less likely infectious process. Mild leukocytosis (mostly due to acute stress / post op) UCx : Mixed GNR ( contaminant ) Status post multiple falls at home. Left periprosthetic femur fracture, sp ORIF ( 09/30) Multiple sclerosis. Hypertension. Atrial fibrillation. PLAN: on Rocephin d# 3/ 3 empirically for now ( will stop in AM ) Monitor CBC Monitor BMP. Monitor cultures (blood) Dc to Rehab Subjective Allergies: Coded Allergies: No Known Allergies (Unverified , 09/26/18) Subjective comfortable Objective Vital Signs Last 24 Hour Vital Signs Date Time Temp Pulse Resp B/P (MAP) Pulse Ox O2 Delivery O2 Flow Rate FiO2 10/02/18 11:51 98.1 56 20 94/56 (69) 98 10/02/18 09:21 98.2 10/02/18 09:00 Room Air 10/02/18 08:50 101 140/96 10/02/18 08:50 101 140/96 10/02/18 08:00 99.8 101 20 140/96 (111) 98 10/02/18 05:15 98.2 10/02/18 04:49 98.2 84 20 119/84 (96) 100 10/02/18 02:10 98.4 10/02/18 00:06 98.4 79 18 116/78 (91) 98 10/01/18 20:19 84 119/84 10/01/18 20:15 Room Air 10/01/18 19:59 98.2 84 17 119/84 (96) 100 10/01/18 16:00 98.6 95 21 105/73 (84) 98 Height (Feet): 5 Height (Inches): 10.00 Weight (Pounds): 279 HEENT: anicteric Respiratory/Chest: normal breath sounds Cardiovascular: regularly irregular Abdomen: soft, non tender Microbiology Date/Time Source Procedure Growth Status 09/30/18 08:45 Blood Blood Culture - Preliminary NO GROWTH AFTER 48 HOURS Resulted 09/30/18 08:25 Indwelling Cath Urine Culture - Final Mixed Gram Positive Organism Complete Laboratory Tests Test 10/01/18 18:25 10/02/18 09:00 Sodium Level 136 MMOL/L (136-145) 137 MMOL/L (136-145) Potassium Level 4.5 MMOL/L (3.5-5.1) 4.2 MMOL/L (3.5-5.1) Chloride Level 104 MMOL/L (98-107) 104 MMOL/L (98-107) Carbon Dioxide Level 24 MMOL/L (21-32) 24 MMOL/L (21-32) Anion Gap 8 mmol/L (5-15) 9 mmol/L (5-15) Blood Urea Nitrogen 18 mg/dL (7-18) 13 mg/dL (7-18) Creatinine 1.2 MG/DL (0.55-1.30) 0.9 MG/DL (0.55-1.30) Estimat Glomerular Filtration Rate 45.1 mL/min (>60) > 60 mL/min (>60) Glucose Level 102 MG/DL (74-106) 102 MG/DL (74-106) Calcium Level 8.1 MG/DL (8.5-10.1) L 8.3 MG/DL (8.5-10.1) L White Blood Count 12.2 K/UL (4.8-10.8) H Red Blood Count 3.14 M/UL (4.20-5.40) L Hemoglobin 8.3 G/DL (12.0-16.0) L Hematocrit 26.2 % (37.0-47.0) L Mean Corpuscular Volume 84 FL (80-99) Mean Corpuscular Hemoglobin 26.6 PG (27.0-31.0) L Mean Corpuscular Hemoglobin Concent 31.8 G/DL (32.0-36.0) L Red Cell Distribution Width 16.9 % (11.6-14.8) H Platelet Count 257 K/UL (150-450) Mean Platelet Volume 7.0 FL (6.5-10.1) Neutrophils (%) (Auto) 73.5 % (45.0-75.0) Lymphocytes (%) (Auto) 8.0 % (20.0-45.0) L Monocytes (%) (Auto) 14.7 % (1.0-10.0) H Eosinophils (%) (Auto) 2.8 % (0.0-3.0) Basophils (%) (Auto) 1.1 % (0.0-2.0) Current Medications Medications (Trade) Dose Ordered Sig/Tom Route PRN Reason Start Time Stop Time Status Last Admin Dose Admin Acetaminophen (Tylenol) 650 mg Q8H PRN ORAL Fever/Headache/Mild Pain 09/27/18 19:23 10/27/18 19:22 09/29/18 20:10 Amlodipine Besylate (Norvasc) 5 mg DAILY ORAL 09/27/18 09:00 10/27/18 08:59 10/02/18 08:50 Aspirin (ASA) 325 mg DAILY ORAL 09/27/18 09:00 10/27/18 08:59 10/02/18 08:50 Carvedilol (Coreg) 25 mg EVERY 12 HOURS ORAL 09/27/18 09:00 10/27/18 08:59 10/02/18 08:50 Ceftriaxone Sodium 2 gm/ Dextrose 55 ml @ 110 mls/hr Q24H IVPB 09/30/18 12:30 10/07/18 12:29 10/02/18 13:02 Dextrose (Dextrose 50%) 25 ml Q30M PRN IV Hypoglycemia 09/27/18 02:15 10/27/18 02:14 Dextrose (Dextrose 50%) 50 ml Q30M PRN IV Hypoglycemia 09/27/18 02:15 10/27/18 02:14 Diphenhydramine HCl (Benadryl) 25 mg Q8H PRN IVP Itching 09/28/18 17:15 10/28/18 17:14 09/28/18 17:25 Docusate Sodium (Colace) 100 mg THREE TIMES A DAY ORAL 10/01/18 09:00 10/31/18 08:59 10/02/18 13:02 Enoxaparin Sodium (Lovenox) 40 mg DAILY SUBQ 10/01/18 09:00 10/11/18 08:59 Famotidine (Pepcid) 40 mg DAILY ORAL 09/27/18 09:00 10/27/18 08:59 10/02/18 08:49 Ferrous Sulfate (Feosol) 325 mg THREE TIMES A DAY ORAL 10/04/18 09:00 11/03/18 08:59 Gabapentin (Neurontin) 300 mg THREE TIMES A DAY ORAL 09/27/18 09:00 10/27/18 08:59 10/02/18 13:02 Hydromorphone HCl (Dilaudid) 1 mg Q3H PRN IVP For Pain 10/02/18 11:00 10/09/18 10:59 10/02/18 13:12 Iron Sucrose 100 mg/Sodium Chloride 60 ml @ 240 mls/hr BEDTIME IV 10/01/18 21:00 10/03/18 21:14 10/01/18 20:30 Lactulose (Cephulac) 20 gm Q4H PRN ORAL Constipation 09/29/18 07:00 10/29/18 06:59 Liothyronine Sodium (Cytomel) 25 mcg DAILY ORAL 09/27/18 09:00 10/27/18 08:59 10/02/18 08:50 Magnesium Hydroxide (Mom) 30 ml DAILYPRN PRN ORAL Constipation 09/30/18 19:45 10/30/18 17:14 Ondansetron HCl (Zofran) 4 mg Q6H PRN IVP Nausea & Vomiting 10/01/18 17:00 10/31/18 16:59 Oxycodone HCl (Roxicodone) 5 mg Q4H PRN ORAL Breakthrough Pain 09/30/18 17:15 10/07/18 17:14 10/02/18 11:00 Charlie Jesus MD Oct 02, 2018 13:39
--- NOTE | 2018-10-02 14:11 | General Progress Note ---
Assessment/Plan Status: stable Assessment/Plan # Anemia of iron deficiency. Reviewed the patient's prior laboratories from [facility]. The patient does have iron deficiency. --> Administer IV iron x5 days --> Cont po iron 3x/day --> The patient is status post colonoscopy EGD, and capsule endoscopy in the past. She had been seen by GI Service and seen by Dr. Hernandez at [facility] --> Has been given one dose of Procrit --> given prbc prn, Maintain hemoglobin above 8. --> Preoperative clearance as per pcp --> epogen has been given x 1 dose # Anemia, s/p surgery. She has had colonoscopy, capsule endoscopy in the past no evidence of bleed --> anemia panel has been reviewed as well --> gi occult was ++ # Leukocytosis, likely secondary to reactive process from anemia. --> Currently, wbc remains elevated --> smear reviewed # Transverse left leg metatarsal fracture, to undergo surgery on Saturday. --> surgery 09/30 completed --> appreciate Dr. Mercado Appreciate consultation greatly! Subjective Date patient seen: Oct 02, 2018 Hematologic/Lymphatic: Reports: anemia Allergies: Coded Allergies: No Known Allergies (Unverified , 09/26/18) All Systems: reviewed and negative except above Subjective Seen by PT. C/O pain. VS stable. Objective Last 24 Hour Vital Signs Date Time Temp Pulse Resp B/P (MAP) Pulse Ox O2 Delivery O2 Flow Rate FiO2 10/02/18 13:42 98.1 10/02/18 11:51 98.1 56 20 94/56 (69) 98 10/02/18 09:21 98.2 10/02/18 09:00 Room Air 10/02/18 08:50 101 140/96 10/02/18 08:50 101 140/96 10/02/18 08:00 99.8 101 20 140/96 (111) 98 10/02/18 05:15 98.2 10/02/18 04:49 98.2 84 20 119/84 (96) 100 10/02/18 02:10 98.4 10/02/18 00:06 98.4 79 18 116/78 (91) 98 10/01/18 20:19 84 119/84 10/01/18 20:15 Room Air 10/01/18 19:59 98.2 84 17 119/84 (96) 100 10/01/18 16:00 98.6 95 21 105/73 (84) 98 Intake and Output 10/01/18 10/02/18 19:00 07:00 Intake Total 750 ml 540 ml Output Total 125 ml 750 ml Balance 625 ml -210 ml Intake Oral 600 ml 480 ml IV Total 150 ml 60 ml Output Urine Total 125 ml 750 ml # Voids 5 Laboratory Tests 10/01/18 18:25: Sodium Level 136, Potassium Level 4.5, Chloride Level 104, Carbon Dioxide Level 24, Anion Gap 8, Blood Urea Nitrogen 18, Creatinine 1.2, Estimat Glomerular Filtration Rate 45.1, Glucose Level 102, Calcium Level 8.1L 10/02/18 09:00: Sodium Level 137, Potassium Level 4.2, Chloride Level 104, Carbon Dioxide Level 24, Anion Gap 9, Blood Urea Nitrogen 13, Creatinine 0.9, Estimat Glomerular Filtration Rate > 60, Glucose Level 102, Calcium Level 8.3L, White Blood Count 12.2H, Red Blood Count 3.14L, Hemoglobin 8.3L, Hematocrit 26.2L, Mean Corpuscular Volume 84, Mean Corpuscular Hemoglobin 26.6L, Mean Corpuscular Hemoglobin Concent 31.8L, Red Cell Distribution Width 16.9H, Platelet Count 257 , Mean Platelet Volume 7.0, Neutrophils (%) (Auto) 73.5, Lymphocytes (%) (Auto) 8.0L, Monocytes (%) (Auto) 14.7H, Eosinophils (%) (Auto) 2.8, Basophils (%) ( Auto) 1.1 Height (Feet): 5 Height (Inches): 10.00 Weight (Pounds): 279 General Appearance: no apparent distress Objective Gen: Nad, somewhat tired and anxious s/p surgery Pulm: CTAB, no cwr CV: Rrr, no mgr Abd: soft, nd Ext: no cce, left extremity dressing c/d/i Robbi Wilcox MD Oct 02, 2018 14:11
[2018-10-02 16:00] VITALS: BP 111/53
[2018-10-02 20:00] VITALS: BP 115/49
[2018-10-02] MEDS: Iron Sucrose 100 MG in NS 55 ML IV SCH (20:26)
[2018-10-03] VITALS (7 sets, daily range): BP systolic 103–135; BP diastolic 54–98
[2018-10-03] MEDS: HYDROmorphone 1mg/ml Carpuject IVP PRN ×4 (00:21→11:45)
[2018-10-03 06:31] LABS: ANION GAP 5 mmol/L (5-15); BLOOD UREA NITROGEN 12 mg/dL (7-18); CALCIUM 8.6 MG/DL (8.5-10.1); CARBON DIOXIDE 28 MMOL/L (21-32); CHLORIDE 104 MMOL/L (98-107); CREATININE 0.9 MG/DL (0.55-1.30); POTASSIUM 3.9 MMOL/L (3.5-5.1); SODIUM 137 MMOL/L (136-145)
[2018-10-03 06:34] LABS: HEMATOCRIT 25.8 % (37.0-47.0); HEMOGLOBIN 7.9 G/DL (12.0-16.0); MEAN CORPUSCULAR VOLUME 83 FL (80-99); PLATELET COUNT 273 K/UL (150-450); RED BLOOD COUNT 3.09 M/UL (4.20-5.40); RED CELL DISTRIBUTION WIDTH 17.9 % (11.6-14.8); WHITE BLOOD COUNT 9.4 K/UL (4.8-10.8)
--- NOTE | 2018-10-03 06:36 | General Progress Note ---
Assessment/Plan Assessment/Plan # Anemia of iron deficiency. Reviewed the patient's prior laboratories from [facility]. The patient does have iron deficiency. --> Administer IV iron x5 days --> Cont po iron 3x/day --> The patient is status post colonoscopy EGD, and capsule endoscopy in the past. She had been seen by GI Service and seen by Dr. Hernandez at [facility] --> Has been given one dose of Procrit --> given prbc prn, Maintain hemoglobin above 8. --> Preoperative clearance as per pcp --> epogen has been given x 1 dose # Anemia, s/p surgery. She has had colonoscopy, capsule endoscopy in the past no evidence of bleed --> anemia panel has been reviewed as well --> gi occult was ++ # Leukocytosis, likely secondary to reactive process from anemia. --> Currently, wbc remains elevated --> smear reviewed # Transverse left leg metatarsal fracture, to undergo surgery on Saturday. --> surgery 09/30 completed --> appreciate Dr. Mercado Appreciate consultation greatly! Subjective Allergies: Coded Allergies: No Known Allergies (Unverified , 09/26/18) Subjective Seen by PT. C/O pain. VS stable. Pending placement. Objective Last 24 Hour Vital Signs Date Time Temp Pulse Resp B/P (MAP) Pulse Ox O2 Delivery O2 Flow Rate FiO2 10/03/18 05:28 98.4 10/03/18 04:00 98.4 81 19 109/59 (76) 96 10/03/18 00:00 99.0 94 18 121/98 (106) 97 10/02/18 21:00 72 115/76 10/02/18 21:00 Room Air 10/02/18 20:00 98.6 100 20 115/49 (71) 99 10/02/18 16:00 98.6 86 20 111/53 (72) 99 10/02/18 11:51 98.1 56 20 94/56 (69) 98 10/02/18 09:21 98.2 10/02/18 09:00 Room Air 10/02/18 08:50 101 140/96 10/02/18 08:50 101 140/96 10/02/18 08:00 99.8 101 20 140/96 (111) 98 Intake and Output 10/02/18 10/03/18 19:00 07:00 Intake Total 1240 ml Balance 1240 ml Intake Oral 1180 ml IV Total 60 ml # Voids 1 6 # Bowel Movements 1 Laboratory Tests 10/02/18 09:00: White Blood Count 12.2H, Red Blood Count 3.14L, Hemoglobin 8.3L, Hematocrit 26.2L, Mean Corpuscular Volume 84, Mean Corpuscular Hemoglobin 26.6L, Mean Corpuscular Hemoglobin Concent 31.8L, Red Cell Distribution Width 16.9H, Platelet Count 257, Mean Platelet Volume 7.0, Neutrophils (%) (Auto) 73.5, Lymphocytes (%) (Auto) 8.0L, Monocytes (%) (Auto) 14.7H, Eosinophils (%) (Auto) 2.8, Basophils (%) (Auto) 1.1, Sodium Level 137, Potassium Level 4.2, Chloride Level 104, Carbon Dioxide Level 24, Anion Gap 9, Blood Urea Nitrogen 13, Creatinine 0.9, Estimat Glomerular Filtration Rate > 60, Glucose Level 102, Calcium Level 8.3L 10/03/18 05:15: White Blood Count [Pending], Red Blood Count [Pending], Hemoglobin [Pending], Hematocrit [Pending], Mean Corpuscular Volume [Pending], Mean Corpuscular Hemoglobin [Pending], Mean Corpuscular Hemoglobin Concent [Pending], Red Cell Distribution Width [Pending], Platelet Count [Pending], Mean Platelet Volume [ Pending], Neutrophils (%) (Auto) [Pending], Lymphocytes (%) (Auto) [Pending], Monocytes (%) (Auto) [Pending], Eosinophils (%) (Auto) [Pending], Basophils (%) (Auto) [Pending], Sodium Level [Pending], Potassium Level [Pending], Chloride Level [Pending], Carbon Dioxide Level [Pending], Blood Urea Nitrogen [Pending], Creatinine [Pending], Estimat Glomerular Filtration Rate [Pending], Glucose Level [Pending], Calcium Level [Pending] Height (Feet): 5 Height (Inches): 10.00 Weight (Pounds): 279 General Appearance: no apparent distress EENT: TMs normal Neck: normal inspection Objective Gen: Nad, somewhat tired and anxious s/p surgery Pulm: CTAB, no cwr CV: Rrr, no mgr Abd: soft, nd Ext: no cce, left extremity dressing c/d/i Robbi Wilcox MD Oct 03, 2018 06:36
--- NOTE | 2018-10-03 08:25 | Nephrology Progress Note ---
Subjective Allergies: Coded Allergies: No Known Allergies (Unverified , 09/26/18) Subjective Patient has been discharged. Awaitng transfer to Rehab Objective Last 24 Hour Vital Signs Date Time Temp Pulse Resp B/P (MAP) Pulse Ox O2 Delivery O2 Flow Rate FiO2 10/03/18 08:00 98.4 91 20 118/54 (75) 96 10/03/18 05:28 98.4 10/03/18 04:00 98.4 81 19 109/59 (76) 96 10/03/18 00:00 99.0 94 18 121/98 (106) 97 10/02/18 21:00 72 115/76 10/02/18 21:00 Room Air 10/02/18 20:00 98.6 100 20 115/49 (71) 99 10/02/18 16:00 98.6 86 20 111/53 (72) 99 10/02/18 11:51 98.1 56 20 94/56 (69) 98 10/02/18 09:21 98.2 10/02/18 09:00 Room Air 10/02/18 08:50 101 140/96 10/02/18 08:50 101 140/96 Intake and Output 10/02/18 10/03/18 19:00 07:00 Intake Total 1240 ml Balance 1240 ml Intake Oral 1180 ml IV Total 60 ml # Voids 1 6 # Bowel Movements 1 Laboratory Tests 10/02/18 09:00: White Blood Count 12.2H, Red Blood Count 3.14L, Hemoglobin 8.3L, Hematocrit 26.2L, Mean Corpuscular Volume 84, Mean Corpuscular Hemoglobin 26.6L, Mean Corpuscular Hemoglobin Concent 31.8L, Red Cell Distribution Width 16.9H, Platelet Count 257, Mean Platelet Volume 7.0, Neutrophils (%) (Auto) 73.5, Lymphocytes (%) (Auto) 8.0L, Monocytes (%) (Auto) 14.7H, Eosinophils (%) (Auto) 2.8, Basophils (%) (Auto) 1.1, Sodium Level 137, Potassium Level 4.2, Chloride Level 104, Carbon Dioxide Level 24, Anion Gap 9, Blood Urea Nitrogen 13, Creatinine 0.9, Estimat Glomerular Filtration Rate > 60, Glucose Level 102, Calcium Level 8.3L 10/03/18 05:15: White Blood Count 9.4, Red Blood Count 3.09L, Hemoglobin 7.9L, Hematocrit 25.8L , Mean Corpuscular Volume 83, Mean Corpuscular Hemoglobin 25.6L, Mean Corpuscular Hemoglobin Concent 30.7L, Red Cell Distribution Width 17.9H, Platelet Count 273, Mean Platelet Volume 7.7, Neutrophils (%) (Auto) , Lymphocytes (%) (Auto) , Monocytes (%) (Auto) , Eosinophils (%) (Auto) , Basophils (%) (Auto) , Sodium Level 137, Potassium Level 3.9, Chloride Level 104 , Carbon Dioxide Level 28, Anion Gap 5, Blood Urea Nitrogen 12, Creatinine 0.9, Estimat Glomerular Filtration Rate > 60, Glucose Level 98, Calcium Level 8.6, Neutrophils % (Manual) [Pending], Lymphocytes % (Manual) [Pending], Platelet Estimate [Pending], Platelet Morphology [Pending] Height (Feet): 5 Height (Inches): 10.00 Weight (Pounds): 279 Patel Gray MD Oct 03, 2018 08:25
[2018-10-03] MEDS: Carvedilol 25mg Tab ORAL SCH ×2 (09:00→22:03)
[2018-10-03] MEDS: Docusate 100mg cap ORAL SCH ×3 (09:06→18:08)
[2018-10-03] MEDS: Liothyronine 5mcg tab ORAL SCH (09:07)
[2018-10-03] MEDS: Enoxaparin 40mg Inj SUBQ SCH (09:13)
[2018-10-03] MEDS: oxyCODONE 5mg IR tab ORAL PRN ×2 (11:26→20:22)
[2018-10-03] MEDS: DiphenhydrAMINE 50mg/ml Inj IVP PRN (15:09)
--- NOTE | 2018-10-03 15:42 | Infectious Diseases Prog Note ---
Assessment/Plan Assessment/Plan ASSESSMENT: The patient is a 67-year-old female with, Fever (appears to be due to acute stress/blood transfusion). SP less likely infectious process. Mild leukocytosis (mostly due to acute stress / post op), Sp UCx : Mixed GNR ( contaminant ) Status post multiple falls at home. Left periprosthetic femur fracture, sp ORIF ( 09/30) Multiple sclerosis. Hypertension. Atrial fibrillation. PLAN: Monitor pt off of AB Rx 10/02 SP Rocephin d# 3/ 3 Monitor CBC Monitor BMP. Monitor cultures (blood) Dc to Rehab Subjective Allergies: Coded Allergies: No Known Allergies (Unverified , 09/26/18) Subjective comfortable Objective Vital Signs Last 24 Hour Vital Signs Date Time Temp Pulse Resp B/P (MAP) Pulse Ox O2 Delivery O2 Flow Rate FiO2 10/03/18 12:15 98.0 10/03/18 12:03 98.0 94 19 103/61 (75) 96 10/03/18 09:00 Room Air 10/03/18 09:00 91 118/54 10/03/18 09:00 91 118/54 10/03/18 08:00 98.4 91 20 118/54 (75) 96 10/03/18 04:00 98.4 81 19 109/59 (76) 96 10/03/18 00:00 99.0 94 18 121/98 (106) 97 10/02/18 21:00 72 115/76 10/02/18 21:00 Room Air 10/02/18 20:00 98.6 100 20 115/49 (71) 99 10/02/18 16:00 98.6 86 20 111/53 (72) 99 Height (Feet): 5 Height (Inches): 10.00 Weight (Pounds): 279 HEENT: anicteric Respiratory/Chest: no accessory muscle use Cardiovascular: no gallop/murmur Abdomen: no organomegaly Laboratory Tests Test 10/03/18 05:15 White Blood Count 9.4 K/UL (4.8-10.8) Red Blood Count 3.09 M/UL (4.20-5.40) L Hemoglobin 7.9 G/DL (12.0-16.0) L Hematocrit 25.8 % (37.0-47.0) L Mean Corpuscular Volume 83 FL (80-99) Mean Corpuscular Hemoglobin 25.6 PG (27.0-31.0) L Mean Corpuscular Hemoglobin Concent 30.7 G/DL (32.0-36.0) L Red Cell Distribution Width 17.9 % (11.6-14.8) H Platelet Count 273 K/UL (150-450) Mean Platelet Volume 7.7 FL (6.5-10.1) Neutrophils (%) (Auto) % (45.0-75.0) Lymphocytes (%) (Auto) % (20.0-45.0) Monocytes (%) (Auto) % (1.0-10.0) Eosinophils (%) (Auto) % (0.0-3.0) Basophils (%) (Auto) % (0.0-2.0) Differential Total Cells Counted 100 Neutrophils % (Manual) 70 % (45-75) Lymphocytes % (Manual) 14 % (20-45) L Monocytes % (Manual) 9 % (1-10) Eosinophils % (Manual) 6 % (0-3) H Basophils % (Manual) 1 % (0-2) Band Neutrophils 0 % (0-8) Platelet Estimate Adequate Platelet Morphology Normal Hypochromasia 3+ Anisocytosis 1+ Sodium Level 137 MMOL/L (136-145) Potassium Level 3.9 MMOL/L (3.5-5.1) Chloride Level 104 MMOL/L (98-107) Carbon Dioxide Level 28 MMOL/L (21-32) Anion Gap 5 mmol/L (5-15) Blood Urea Nitrogen 12 mg/dL (7-18) Creatinine 0.9 MG/DL (0.55-1.30) Estimat Glomerular Filtration Rate > 60 mL/min (>60) Glucose Level 98 MG/DL (74-106) Calcium Level 8.6 MG/DL (8.5-10.1) Current Medications Medications (Trade) Dose Ordered Sig/Tom Route PRN Reason Start Time Stop Time Status Last Admin Dose Admin Acetaminophen (Tylenol) 650 mg Q8H PRN ORAL Fever/Headache/Mild Pain 09/27/18 19:23 10/27/18 19:22 10/03/18 14:21 Amlodipine Besylate (Norvasc) 5 mg DAILY ORAL 09/27/18 09:00 10/27/18 08:59 10/02/18 08:50 Aspirin (ASA) 325 mg DAILY ORAL 09/27/18 09:00 10/27/18 08:59 10/03/18 09:06 Carvedilol (Coreg) 25 mg EVERY 12 HOURS ORAL 09/27/18 09:00 10/27/18 08:59 10/02/18 08:50 Dextrose (Dextrose 50%) 25 ml Q30M PRN IV Hypoglycemia 09/27/18 02:15 10/27/18 02:14 Dextrose (Dextrose 50%) 50 ml Q30M PRN IV Hypoglycemia 09/27/18 02:15 10/27/18 02:14 Diphenhydramine HCl (Benadryl) 25 mg Q8H PRN IVP Itching 09/28/18 17:15 10/28/18 17:14 10/03/18 15:09 Docusate Sodium (Colace) 100 mg THREE TIMES A DAY ORAL 10/01/18 09:00 10/31/18 08:59 10/03/18 14:20 Enoxaparin Sodium (Lovenox) 40 mg DAILY SUBQ 10/01/18 09:00 10/11/18 08:59 10/03/18 09:13 Famotidine (Pepcid) 40 mg DAILY ORAL 09/27/18 09:00 10/27/18 08:59 10/03/18 09:06 Ferrous Sulfate (Feosol) 325 mg THREE TIMES A DAY ORAL 10/04/18 09:00 11/03/18 08:59 Gabapentin (Neurontin) 300 mg THREE TIMES A DAY ORAL 09/27/18 09:00 10/27/18 08:59 10/03/18 14:20 Hydromorphone HCl (Dilaudid) 1 mg Q3H PRN IVP For Pain 10/02/18 11:00 10/09/18 10:59 10/03/18 11:45 Iron Sucrose 100 mg/Sodium Chloride 60 ml @ 240 mls/hr BEDTIME IV 10/01/18 21:00 10/03/18 21:14 10/02/18 20:26 Lactulose (Cephulac) 20 gm Q4H PRN ORAL Constipation 09/29/18 07:00 10/29/18 06:59 10/03/18 09:06 Liothyronine Sodium (Cytomel) 25 mcg DAILY ORAL 09/27/18 09:00 10/27/18 08:59 10/03/18 09:07 Magnesium Hydroxide (Mom) 30 ml DAILYPRN PRN ORAL Constipation 09/30/18 19:45 10/30/18 17:14 Ondansetron HCl (Zofran) 4 mg Q6H PRN IVP Nausea & Vomiting 10/01/18 17:00 10/31/18 16:59 Oxycodone HCl (Roxicodone) 5 mg Q4H PRN ORAL Breakthrough Pain 09/30/18 17:15 10/07/18 17:14 10/03/18 11:26 Charlie Jesus MD Oct 03, 2018 15:42
[2018-10-03] MEDS: Iron Sucrose 100 MG in NS 55 ML IV SCH (21:00)
--- NOTE | 2018-10-04 11:54 | Discharge Summary ---
Discharge Summary Discharge Summary _ DATE OF ADMISSION: 09/27/2018 DATE OF DISCHARGE: 10/03/2018 REASON FOR ADMISSION: 67 years old female with past medical history of hypertension, multiply sclerosis, status post bilateral knee replacement, reported frequent falls at home. She presented to emergency department with complain of the left knee pain , radiating down below the knee. She denied any head or back trauma. She denied numbness , however due to multiply sclerosis has decreased l sensation in the lower extremity. Upon evaluation vital signs were stable. Laboratory workup revealed leukocytosis WBC 11.7. Hemoglobin 9.4 hematocrit 30.3. X-ray of the left tibia-fibula revealed no acute osseous abnormality. X-ray of the left knee revealed transverse distal femoral diaphysis fracture with 4 cm displaced overlap present. X-ray of the left femur confirmed the diagnosis of transverse distal femoral diaphysis fracture 4 cm overlap . Patient admitted with diagnoses of left transverse distal femoral diaphysis fracture with 4 cm displaced overlap, chronic atrial fibrillation, recurrent multiply falls, multiply sclerosis, hypertension , anemia. CONSULTANTS: ID specialist Ann [place] ammonia print operator/oncologist Dr. Wilcox Orthopedic surgery Dr. Rivera [facility] COURSE: Patient admitted to the floor. Patient started on gentle IV hydration. Pain management was addressed. Orthopedic surgery consult was requested. Patient subsequently undergone open reduction internal fixation of left periprosthetic femur fracture. Course of recovery was uneventful. DVT and GI prophylaxis provided. Pain management was addressed, and pain was controlled, Postoperative hip precautions were maintained. Patient was working with physical and occupational therapists Fall precautions maintained. Blood pressure was managed with beta sosa and calcium channel sosa , and remained stable. Heart rate was controlled with beta sosa. No anticoagulation given history of frequent falls. Patient started on aspirin. Cytomel continued. Bowel regimen instituted. Data Security Consultant closely followed . Anemia workup revealed evidence of iron deficiency anemia. Patient was on iron supplementation, to be continued at home. Hemoglobin and hematocrit were closely monitored with goal to keep hemoglobin above 7. Patient undergone infusion of Venofer for 5 days. Patient had a prior evaluation by GI team, including colonoscopy and capsule endoscopy with no evidence of GI bleeding. Stool for occult blood was negative. Hemoglobin and hematocrit remained at baseline. Infectious disease specialist closely followed. Urine culture revealed mixed gram-positive organisms, contaminant as per ID specialist. Blood culture were negative. Infectious disease recommended to keep patient off antibiotic. Leukocytosis was likely reactive due to stress due to fall and fracture, Supportive care provided. Bowel regimen instituted. Pain was controlled. Patient ambulated with physical therapy ,tolerated diet, voided freely . p Patient was stable for discharge to snf facility for continuation of care . FINAL DIAGNOSES: Left transverse distal femoral diaphysis fracture with 4 cm displaced overlap Status post open reduction internal fixation of left periprosthetic femur fracture Hypertension Chronic atrial fibrillation Hypothyroidism Anemia of iron deficiency Multiply sclerosis Recurrent falls DISCHARGE MEDICATIONS: See Medication Reconciliation list. DISCHARGE INSTRUCTIONS: Patient was discharged to the snf facility. Follow up with medical doctor at the facility. I have been assigned to dictate discharge summary for this account. I was not involved in the patient's management. Halle Valdovinos NP Oct 04, 2018 11:54
== END 2018-10-03 22:27 | DRG 481 ==
LOC: EDBD 23:51 → EMR 23:59 → 3E 09-27 01:47 → EDBEDREQ 09-27 01:58
PROC: 0QSC04Z Reposition Left Lower Femur with Internal Fixation Device, Open Approach (ICD-10-PCS; principal; 2018-09-30 16:35)
DX: M97.12XA Periprosthetic fracture around internal prosthetic left knee joint, initial encounter (principal); S72.492A Other fracture of lower end of left femur, initial encounter for closed fracture; Z68.42 Body mass index [BMI] 45.0-49.9, adult; G35 Multiple sclerosis; W01.0XXA Fall on same level from slipping, tripping and stumbling without subsequent striking against object, initial encounter; Z91.81 History of falling; Y92.9 Unspecified place or not applicable; Z96.653 Presence of artificial knee joint, bilateral; I10 Essential (primary) hypertension; I48.2 Chronic atrial fibrillation; D50.9 Iron deficiency anemia, unspecified; R50.82 Postprocedural fever; D72.829 Elevated white blood cell count, unspecified; E03.9 Hypothyroidism, unspecified
CPT/HCPCS: 29505; 36415; 51702; 76001; 80048; 80053; 81001; 82270; 82607; 82728; 82746; 83540; 83550; 83615; 84443; 85007; 85025; 85044; 85060; 85384; 85610; 85730; 86850; 86900; 86901; 86920; 87040; 87070; 87086; 87205; 93005; 94003; 94150; 96374; 96375; 99285; J2250; J2405